=== PATIENT | male | born 1955 | race Caucasian/White ===

== ENCOUNTER 2021-11-02 16:55 | Inpatient (IN) ==
[2021-11-02 18:44] LABS: Basophils % 0.3 % (0.0-0.8); Eosinophils # 0.1 10*3/uL (0.0-0.87); Eosinophils % 1.3 % (0.00-10.9); Hematocrit 23.9 VOL% (42.0-52.0); Hemoglobin 7.4 GM/DL (14.0-18.0); Immature Granulocytes Absolute 0.09 #; Lymphocytes # 1.2 10*3/uL (1.4-4.0); Lymphocytes % 12.9 % (21.2-54.2); Mean Corpuscular Volume 95.2 FL (87-102); Mean Platelet Volume 10.6 FL (9.6-12.0); Monocytes # 0.6 10*3/uL (0.11-0.8); Monocytes % 6.8 % (1.7-12.7); Neutrophils % 77.7 % (38.7-73.9); Platelet Count 252 T/CUMM (130-400); Red Blood Count 2.51 MC/CUMM (3.8-5.5); Red Cell Distribution Width 15.3 % (9.3-17.3); White Blood Count 9.2 T/CUMM (4-12)
[2021-11-02 19:02] LABS: Bilirubin,Total 0.5 MG/DL (0.20-1.00); Calcium 8.3 MG/DL (8.5-10.1); Osmolality,Calculated 300.3 MOS/KG (273-304); Potassium 3.7 MMOL/L (3.5-5.1); Total Protein 7.1 G/DL (6.4-8.2)
[2021-11-02 19:03] LABS: INR 1.2; PT Patient Result 12.7 SECS (10.5-12.0); Partial Thromboplastin Time 27.3 SECS (23.7-32.9)
[2021-11-02 19:21] LABS: Arterial Base Excess iSTAT 10 MMOL/L (-2.5-2.5); Arterial O2 Saturation iSTAT 78 % (95-100); Arterial PCO2 iSTAT 51 MM HG (35-48); Arterial PO2 iSTAT 42 MM HG (80-95); Arterial Total CO2 iSTAT 37 MMO/L (23-27); Arterial pH iSTAT 7.446 (7.35-7.45)
[2021-11-02 19:51] LABS: Sedimentation Rate-Westergren 136 MM/HR (0-20)
[2021-11-02] MEDS ORDERED: GLUCAGON 1 MG VIAL IM PRN (20:08)
[2021-11-02] MEDS ORDERED: DEXTROSE 10% 250 ML BAG IV PRN (20:34)
[2021-11-02 20:55] LABS: Bilirubin,Urine Negative (Negative); Blood, Urine Large mg/dL (Negative); Glucose,Urine (UA) Negative (Negative); Ketones,Urine Negative (Negative); Nitrite,Urine Negative (Negative); Protein,Urine 100 mg/dL (Negative); Urine Appearance Slightly Cloudy (Clear); Urine Color Yellow (Yellow); Urine Specific Gravity >= 1.030 (1.001-1.035); Urine Urobilinogen 0.2 eU/dL (<2.0); Urine pH 5.5 (4.5-8.0)
[2021-11-02 20:58] LABS: Hyaline Casts,Urine 13 /LPF (0-3); Mucus,Urine Occasional /LPF (Occasional); RBC,Urine 113 /HPF (0-4)
[2021-11-02] MEDS: CEFEPIME 1,000 MG in SODIUM CHLORIDE 0.9% 100 ML IV SCH (22:04)
[2021-11-02] MEDS: FUROSEMIDE 40 MG/4 ML VIAL IV SCH (22:04)
[2021-11-02] MEDS: ENOXAPARIN 30 MG/0.3 ML SYRINGE SUBCUT SCH (22:05)
[2021-11-02] MEDS: INSULIN REGULAR 100 UNIT/ML SUBCUT SCH (23:09)
[2021-11-02] MEDS: VANCOMYCIN INJ 1,750 MG in SODIUM CHLORIDE 0.9% 500 ML IV SCH (23:12)
[2021-11-02] MEDS: ALBUTEROL/IPRATROPIUM 3 ML NEB RESP TX SCH (23:55)
[2021-11-03 04:51] LABS: Basophils % 0.5 % (0.0-0.8); Eosinophils # 0.1 10*3/uL (0.0-0.87); Eosinophils % 1.6 % (0.00-10.9); Hematocrit 25.1 VOL% (42.0-52.0); Hemoglobin 7.6 GM/DL (14.0-18.0); Immature Granulocytes % 1.4 %; Immature Granulocytes Absolute 0.12 #; Lymphocytes # 0.6 10*3/uL (1.4-4.0); Lymphocytes % 7.6 % (21.2-54.2); Mean Corpuscular HGB Conc 30.3 GM/DL (32-36); Mean Corpuscular Volume 95.1 FL (87-102); Mean Platelet Volume 10.6 FL (9.6-12.0); Monocytes # 0.6 10*3/uL (0.11-0.8); Monocytes % 7.5 % (1.7-12.7); Neutrophils % 81.4 % (38.7-73.9); Platelet Count 251 T/CUMM (130-400); Red Blood Count 2.64 MC/CUMM (3.8-5.5); Red Cell Distribution Width 15.4 % (9.3-17.3); White Blood Count 8.3 T/CUMM (4-12)
[2021-11-03 05:16] LABS: Calcium 8.7 MG/DL (8.5-10.1); Osmolality,Calculated 302.1 MOS/KG (273-304); Potassium 3.9 MMOL/L (3.5-5.1)
[2021-11-03] MEDS: CEFEPIME 1,000 MG in SODIUM CHLORIDE 0.9% 100 ML IV SCH ×3 (05:29→22:20)
[2021-11-03] MEDS: ALBUTEROL/IPRATROPIUM 3 ML NEB RESP TX SCH ×3 (07:15→19:55)
[2021-11-03] MEDS: INSULIN REGULAR 100 UNIT/ML SUBCUT SCH ×4 (07:50→22:20)
[2021-11-03] MEDS ORDERED: NITROGLYCERIN SL 0.4 MG TABLET SL PRN (08:26)
[2021-11-03] MEDS ORDERED: COLCHICINE 0.6 MG CAPSULE PO PRN (08:31)
[2021-11-03] MEDS: SPIRONOLACTONE 25 MG TABLET PO SCH (08:52)
[2021-11-03] MEDS: SACUBITRIL/VALSARTAN 49-51 MG TABLET PO SCH ×2 (08:53→22:20)
[2021-11-03] MEDS: SERTRALINE 50 MG TABLET PO SCH (08:53)
[2021-11-03] MEDS: FERROUS SULFATE 325 MG TABLET PO SCH ×2 (08:53→22:20)
[2021-11-03] MEDS: MAGNESIUM OXIDE 400 MG TABLET PO SCH ×2 (08:53→22:20)
[2021-11-03] MEDS: carvediloL 6.25 MG TABLET PO SCH ×2 (08:53→22:20)
[2021-11-03] MEDS: ISOSORBIDE MONONITRATE 30 MG TABLET PO SCH (08:53)
[2021-11-03] MEDS: GABAPENTIN 600 MG TABLET PO SCH ×2 (08:53→22:20)
[2021-11-03] MEDS: DOCUSATE SODIUM 100 MG CAPSULE PO SCH ×2 (08:53→22:20)
[2021-11-03] MEDS: allopurinoL 300 MG TABLET PO SCH (08:54)
[2021-11-03] MEDS ORDERED: CLOPIDOGREL 75 MG TABLET PO SCH (09:00)
[2021-11-03] MEDS ORDERED: CALCIUM (CARBONATE)/VITAMIN D 600 MG-400 UNIT TABLET PO SCH (09:00)
[2021-11-03] MEDS ORDERED: VANCOMYCIN INJ 1,000 MG in SODIUM CHLORIDE 0.9% 250 ML IV SCH (09:00)
[2021-11-03] MEDS ORDERED: PANTOPRAZOLE 40 MG TABLET PO SCH (09:00)
[2021-11-03] MEDS: FUROSEMIDE 40 MG/4 ML VIAL IV SCH ×2 (09:18→16:15)
[2021-11-03] MEDS: BACITRACIN OINT 28.35 GM TUBE TOP SCH (09:18)
[2021-11-03] MEDS ORDERED: REMDESIVIR 200 MG in SODIUM CHLORIDE 0.9% 210 ML IV ONE (16:00)
[2021-11-03] MEDS: DEXAMETHASONE 4 MG/1 ML VIAL IV SCH (16:12)
[2021-11-03] MEDS: CETIRIZINE 10 MG TABLET PO SCH (16:12)
[2021-11-03] MEDS: CHOLECALCIFEROL 1,000 UNIT TABLET PO SCH (16:12)
[2021-11-03] MEDS: ZINC GLUCONATE 50 MG TABLET PO SCH (16:15)
[2021-11-03] MEDS: ALBUTEROL INHALER 18 GM INH SCH (18:08)
[2021-11-03 18:15] LABS: Basophils # 0.1 10*3/uL (0.0-0.2); Basophils % 0.6 % (0.0-0.8); Eosinophils % 0.3 % (0.00-10.9); Hemoglobin 7.9 GM/DL (14.0-18.0); Immature Granulocytes % 1.4 %; Immature Granulocytes Absolute 0.12 #; Lymphocytes # 0.8 10*3/uL (1.4-4.0); Lymphocytes % 8.8 % (21.2-54.2); Mean Corpuscular HGB Conc 30.4 GM/DL (32-36); Mean Corpuscular Volume 94.9 FL (87-102); Mean Platelet Volume 10.3 FL (9.6-12.0); Monocytes # 0.6 10*3/uL (0.11-0.8); Monocytes % 6.9 % (1.7-12.7); NRBC # 0.02 10*3/uL; Platelet Count 289 T/CUMM (130-400); Red Blood Count 2.74 MC/CUMM (3.8-5.5); Red Cell Distribution Width 15.7 % (9.3-17.3); White Blood Count 8.7 T/CUMM (4-12)
[2021-11-03] MEDS: DESITIN 4OZ/NYSTATIN 15 GRAM MIXTURE PASTE TOP SCH (22:20)
[2021-11-03] MEDS: FAMOTIDINE 20 MG TABLET PO SCH (22:20)
[2021-11-03] MEDS: ATORVASTATIN 80 MG TABLET PO SCH (22:20)
[2021-11-03] MEDS: ASPIRIN EC 81 MG TABLET PO SCH (22:20)
[2021-11-03] MEDS: ENOXAPARIN 30 MG/0.3 ML SYRINGE SUBCUT SCH (22:20)
[2021-11-03] MEDS: INSULIN GLARGINE 100 UNIT/ML SUBCUT SCH (23:28)
[2021-11-03] MEDS: VANCOMYCIN INJ 1,750 MG in SODIUM CHLORIDE 0.9% 500 ML IV SCH (23:29)
[2021-11-04] MEDS ORDERED: hydrALAZINE 20 MG/1 ML VIAL IV ONE (01:58)
[2021-11-04 02:51] LABS: Arterial Base Excess iSTAT 8 MMOL/L (-2.5-2.5); Arterial Bicarbonate iSTAT 34.4 MMOL/L (20-26); Arterial O2 Saturation iSTAT 88 % (95-100); Arterial PCO2 iSTAT 62 MM HG (35-48); Arterial PO2 iSTAT 59 MM HG (80-95); Arterial Total CO2 iSTAT 36 MMO/L (23-27); Arterial pH iSTAT 7.353 (7.35-7.45)
[2021-11-04] MEDS: CEFEPIME 1,000 MG in SODIUM CHLORIDE 0.9% 100 ML IV SCH ×3 (04:33→21:57)
[2021-11-04 05:33] LABS: Basophils % 0.3 % (0.0-0.8); Hematocrit 24.1 VOL% (42.0-52.0); Hemoglobin 7.3 GM/DL (14.0-18.0); Immature Granulocytes % 1.6 %; Immature Granulocytes Absolute 0.11 #; Lymphocytes # 0.9 10*3/uL (1.4-4.0); Lymphocytes % 12.6 % (21.2-54.2); Mean Corpuscular HGB Conc 30.3 GM/DL (32-36); Mean Corpuscular Volume 95.6 FL (87-102); Mean Platelet Volume 10.5 FL (9.6-12.0); Monocytes # 0.8 10*3/uL (0.11-0.8); Monocytes % 11.7 % (1.7-12.7); NRBC # 0.03 10*3/uL; Neutrophils % 73.8 % (38.7-73.9); Platelet Count 266 T/CUMM (130-400); Red Blood Count 2.52 MC/CUMM (3.8-5.5); Red Cell Distribution Width 15.7 % (9.3-17.3)
[2021-11-04 05:58] LABS: Albumin 1.9 G/DL (3.4-5.0); Bilirubin,Total 0.5 MG/DL (0.20-1.00); Calcium 8.1 MG/DL (8.5-10.1); Calcium 8.2 MG/DL (8.5-10.1); Ferritin 847.8 ng/mL (26-388); Osmolality,Calculated 303.1 MOS/KG (273-304); Osmolality,Calculated 308.8 MOS/KG (273-304); Potassium 3.8 MMOL/L (3.5-5.1); Potassium 3.9 MMOL/L (3.5-5.1); Risk Ratio 1.62; Total Protein 7.1 G/DL (6.4-8.2); VLDL Cholesterol 10.4 MG/DL
[2021-11-04 06:14] LABS: Arterial Base Excess iSTAT 9 MMOL/L (-2.5-2.5); Arterial O2 Saturation iSTAT 98 % (95-100); Arterial PCO2 iSTAT 58 MM HG (35-48); Arterial PO2 iSTAT 104 MM HG (80-95); Arterial Total CO2 iSTAT 37 MMO/L (23-27); Arterial pH iSTAT 7.388 (7.35-7.45)
[2021-11-04] MEDS: FUROSEMIDE 40 MG/4 ML VIAL IV SCH ×2 (08:15→15:46)
[2021-11-04] MEDS: BACITRACIN OINT 28.35 GM TUBE TOP SCH (08:20)
[2021-11-04] MEDS: DOCUSATE SODIUM 100 MG CAPSULE PO SCH ×2 (08:20→21:56)
[2021-11-04] MEDS: DESITIN 4OZ/NYSTATIN 15 GRAM MIXTURE PASTE TOP SCH ×2 (08:21→21:58)
[2021-11-04] MEDS: GABAPENTIN 600 MG TABLET PO SCH ×2 (08:21→21:56)
[2021-11-04] MEDS: REMDESIVIR 100 MG in SODIUM CHLORIDE 0.9% 100 ML IV SCH (09:34)
[2021-11-04] MEDS: INSULIN REGULAR 100 UNIT/ML SUBCUT SCH ×4 (09:34→21:57)
[2021-11-04] MEDS: DEXAMETHASONE 4 MG/1 ML VIAL IV SCH (09:35)
[2021-11-04] MEDS: ALBUTEROL INHALER 18 GM INH SCH ×4 (09:45→18:16)
[2021-11-04] MEDS: carvediloL 6.25 MG TABLET PO SCH ×2 (09:50→21:56)
[2021-11-04] MEDS: SACUBITRIL/VALSARTAN 49-51 MG TABLET PO SCH ×2 (09:50→21:55)
[2021-11-04] MEDS: SPIRONOLACTONE 25 MG TABLET PO SCH (09:50)
[2021-11-04] MEDS: FERROUS SULFATE 325 MG TABLET PO SCH ×2 (09:50→21:56)
[2021-11-04] MEDS: FAMOTIDINE 20 MG TABLET PO SCH ×2 (09:51→21:56)
[2021-11-04] MEDS: allopurinoL 300 MG TABLET PO SCH (09:51)
[2021-11-04] MEDS: ZINC GLUCONATE 50 MG TABLET PO SCH (09:51)
[2021-11-04] MEDS: MAGNESIUM OXIDE 400 MG TABLET PO SCH ×2 (09:51→21:56)
[2021-11-04] MEDS: CETIRIZINE 10 MG TABLET PO SCH (09:51)
[2021-11-04] MEDS: ISOSORBIDE MONONITRATE 30 MG TABLET PO SCH (09:51)
[2021-11-04] MEDS: CHOLECALCIFEROL 1,000 UNIT TABLET PO SCH (09:51)
[2021-11-04] MEDS: SERTRALINE 50 MG TABLET PO SCH (09:51)
[2021-11-04] MEDS: ALBUTEROL/IPRATROPIUM 3 ML NEB RESP TX SCH (17:28)
[2021-11-04] MEDS: ENOXAPARIN 30 MG/0.3 ML SYRINGE SUBCUT SCH (21:55)
[2021-11-04] MEDS: ATORVASTATIN 80 MG TABLET PO SCH (21:56)
[2021-11-04] MEDS: ASPIRIN EC 81 MG TABLET PO SCH (21:56)
[2021-11-04] MEDS: INSULIN GLARGINE 100 UNIT/ML SUBCUT SCH (21:57)
[2021-11-04] MEDS: VANCOMYCIN INJ 1,750 MG in SODIUM CHLORIDE 0.9% 500 ML IV SCH (22:45)
[2021-11-05] MEDS: CEFEPIME 1,000 MG in SODIUM CHLORIDE 0.9% 100 ML IV SCH ×3 (04:41→22:30)
[2021-11-05 05:44] LABS: Basophils % 0.2 % (0.0-0.8); Hematocrit 26.4 VOL% (42.0-52.0); Immature Granulocytes % 1.4 %; Immature Granulocytes Absolute 0.09 #; Lymphocytes # 1.2 10*3/uL (1.4-4.0); Lymphocytes % 18.8 % (21.2-54.2); Mean Corpuscular HGB Conc 30.3 GM/DL (32-36); Mean Corpuscular Volume 96.7 FL (87-102); Mean Platelet Volume 11.2 FL (9.6-12.0); Monocytes # 0.5 10*3/uL (0.11-0.8); Monocytes % 8.2 % (1.7-12.7); Neutrophils % 71.4 % (38.7-73.9); Platelet Count 87 T/CUMM (130-400); Red Blood Count 2.73 MC/CUMM (3.8-5.5); Red Cell Distribution Width 15.8 % (9.3-17.3); White Blood Count 6.3 T/CUMM (4-12)
[2021-11-05 06:03] LABS: Albumin 1.4 G/DL (3.4-5.0); Bilirubin,Total 0.5 MG/DL (0.20-1.00); Calcium 7.7 MG/DL (8.5-10.1); Ferritin 868.1 ng/mL (26-388); Osmolality,Calculated 306.7 MOS/KG (273-304); Potassium 3.5 MMOL/L (3.5-5.1); Total Protein 6.1 G/DL (6.4-8.2)
[2021-11-05] MEDS: SERTRALINE 50 MG TABLET PO SCH (09:00)
[2021-11-05] MEDS: FAMOTIDINE 20 MG TABLET PO SCH ×2 (09:00→21:50)
[2021-11-05] MEDS: MAGNESIUM OXIDE 400 MG TABLET PO SCH ×2 (09:00→21:50)
[2021-11-05] MEDS: CHOLECALCIFEROL 1,000 UNIT TABLET PO SCH (09:01)
[2021-11-05] MEDS: CETIRIZINE 10 MG TABLET PO SCH (09:01)
[2021-11-05] MEDS: GABAPENTIN 600 MG TABLET PO SCH ×2 (09:01→21:50)
[2021-11-05] MEDS: DOCUSATE SODIUM 100 MG CAPSULE PO SCH ×2 (09:01→21:50)
[2021-11-05] MEDS: FERROUS SULFATE 325 MG TABLET PO SCH ×2 (09:01→21:50)
[2021-11-05] MEDS: allopurinoL 300 MG TABLET PO SCH (09:01)
[2021-11-05] MEDS: SPIRONOLACTONE 25 MG TABLET PO SCH (09:01)
[2021-11-05] MEDS: ISOSORBIDE MONONITRATE 30 MG TABLET PO SCH (09:01)
[2021-11-05] MEDS: ZINC GLUCONATE 50 MG TABLET PO SCH (09:02)
[2021-11-05] MEDS: carvediloL 6.25 MG TABLET PO SCH ×2 (09:02→21:50)
[2021-11-05] MEDS: DEXAMETHASONE 4 MG/1 ML VIAL IV SCH (09:02)
[2021-11-05] MEDS: FUROSEMIDE 40 MG/4 ML VIAL IV SCH ×2 (09:03→18:42)
[2021-11-05] MEDS: INSULIN REGULAR 100 UNIT/ML SUBCUT SCH ×4 (09:04→22:25)
[2021-11-05] MEDS: DESITIN 4OZ/NYSTATIN 15 GRAM MIXTURE PASTE TOP SCH ×2 (09:05→21:50)
[2021-11-05] MEDS: ALBUTEROL INHALER 18 GM INH SCH ×4 (09:05→20:00)
[2021-11-05] MEDS: BACITRACIN OINT 28.35 GM TUBE TOP SCH (09:05)
[2021-11-05] MEDS: SACUBITRIL/VALSARTAN 49-51 MG TABLET PO SCH ×2 (09:10→21:50)
[2021-11-05] MEDS: REMDESIVIR 100 MG in SODIUM CHLORIDE 0.9% 100 ML IV SCH (11:59)
[2021-11-05] MEDS: ATORVASTATIN 80 MG TABLET PO SCH (21:50)
[2021-11-05] MEDS: ASPIRIN EC 81 MG TABLET PO SCH (21:50)
[2021-11-05] MEDS: ENOXAPARIN 30 MG/0.3 ML SYRINGE SUBCUT SCH (21:50)
[2021-11-05] MEDS: INSULIN GLARGINE 100 UNIT/ML SUBCUT SCH (22:25)
[2021-11-06] MEDS: DESITIN 4OZ/NYSTATIN 15 GRAM MIXTURE PASTE TOP SCH ×2 (00:37→10:47)
[2021-11-06] MEDS: CEFEPIME 1,000 MG in SODIUM CHLORIDE 0.9% 100 ML IV SCH ×3 (05:30→23:36)
[2021-11-06 05:51] LABS: Basophils % 0.1 % (0.0-0.8); Eosinophils % 0.4 % (0.00-10.9); Hematocrit 27.7 VOL% (42.0-52.0); Hemoglobin 8.2 GM/DL (14.0-18.0); Immature Granulocytes % 0.9 %; Immature Granulocytes Absolute 0.07 #; Lymphocytes # 1.6 10*3/uL (1.4-4.0); Lymphocytes % 19.7 % (21.2-54.2); Mean Corpuscular HGB Conc 29.6 GM/DL (32-36); Mean Corpuscular Volume 96.9 FL (87-102); Mean Platelet Volume 10.3 FL (9.6-12.0); Monocytes # 0.5 10*3/uL (0.11-0.8); Monocytes % 6.6 % (1.7-12.7); NRBC # 0.02 10*3/uL; Neutrophils % 72.3 % (38.7-73.9); Red Blood Count 2.86 MC/CUMM (3.8-5.5); Red Cell Distribution Width 15.9 % (9.3-17.3); White Blood Count 7.9 T/CUMM (4-12)
[2021-11-06 06:03] LABS: Platelet Count 280 T/CUMM (130-400)
[2021-11-06 06:11] LABS: Albumin 1.7 G/DL (3.4-5.0); Bilirubin,Total 0.5 MG/DL (0.20-1.00); Calcium 8.1 MG/DL (8.5-10.1); Ferritin 877.2 ng/mL (26-388); Osmolality,Calculated 313.3 MOS/KG (273-304); Potassium 3.5 MMOL/L (3.5-5.1); Total Protein 6.5 G/DL (6.4-8.2)
[2021-11-06] MEDS: SERTRALINE 50 MG TABLET PO SCH (09:22)
[2021-11-06] MEDS: carvediloL 6.25 MG TABLET PO SCH ×2 (09:23→23:33)
[2021-11-06] MEDS: SPIRONOLACTONE 25 MG TABLET PO SCH (09:23)
[2021-11-06] MEDS: DOCUSATE SODIUM 100 MG CAPSULE PO SCH (09:23)
[2021-11-06] MEDS: allopurinoL 300 MG TABLET PO SCH (09:23)
[2021-11-06] MEDS: ZINC GLUCONATE 50 MG TABLET PO SCH (09:23)
[2021-11-06] MEDS: SACUBITRIL/VALSARTAN 49-51 MG TABLET PO SCH ×2 (09:23→23:34)
[2021-11-06] MEDS: MAGNESIUM OXIDE 400 MG TABLET PO SCH (09:24)
[2021-11-06] MEDS: CHOLECALCIFEROL 1,000 UNIT TABLET PO SCH (09:24)
[2021-11-06] MEDS: FERROUS SULFATE 325 MG TABLET PO SCH (09:24)
[2021-11-06] MEDS: GABAPENTIN 600 MG TABLET PO SCH ×2 (09:25→23:34)
[2021-11-06] MEDS: FAMOTIDINE 20 MG TABLET PO SCH ×2 (09:25→23:33)
[2021-11-06] MEDS: REMDESIVIR 100 MG in SODIUM CHLORIDE 0.9% 100 ML IV SCH (09:26)
[2021-11-06] MEDS: DEXAMETHASONE 4 MG/1 ML VIAL IV SCH (09:26)
[2021-11-06] MEDS: ISOSORBIDE MONONITRATE 30 MG TABLET PO SCH (09:26)
[2021-11-06] MEDS: CETIRIZINE 10 MG TABLET PO SCH (09:26)
[2021-11-06] MEDS: INSULIN REGULAR 100 UNIT/ML SUBCUT SCH ×4 (09:27→23:37)
[2021-11-06] MEDS: ALBUTEROL INHALER 18 GM INH SCH ×3 (09:31→16:24)
[2021-11-06] MEDS: BACITRACIN OINT 28.35 GM TUBE TOP SCH (09:32)
[2021-11-06] MEDS: FUROSEMIDE 40 MG/4 ML VIAL IV SCH (10:51)
[2021-11-06] MEDS: VANCOMYCIN INJ 1,750 MG in SODIUM CHLORIDE 0.9% 500 ML IV SCH (12:34)
[2021-11-06 14:05] LABS: Arterial Base Excess iSTAT 10 MMOL/L (-2.5-2.5); Arterial Bicarbonate iSTAT 35.7 MMOL/L (20-26); Arterial O2 Saturation iSTAT 93 % (95-100); Arterial PCO2 iSTAT 55 MM HG (35-48); Arterial PO2 iSTAT 68 MM HG (80-95); Arterial Total CO2 iSTAT 37 MMO/L (23-27); Arterial pH iSTAT 7.421 (7.35-7.45)
[2021-11-06] MEDS: ENOXAPARIN 30 MG/0.3 ML SYRINGE SUBCUT SCH (23:37)
[2021-11-06] MEDS: INSULIN GLARGINE 100 UNIT/ML SUBCUT SCH (23:39)
[2021-11-07] MEDS: VANCOMYCIN INJ 1,750 MG in SODIUM CHLORIDE 0.9% 500 ML IV SCH
[2021-11-07] MEDS: DOCUSATE SODIUM 100 MG CAPSULE PO SCH ×3 (00:07→23:33)
[2021-11-07] MEDS: ASPIRIN EC 81 MG TABLET PO SCH ×2 (00:08→23:33)
[2021-11-07] MEDS: ATORVASTATIN 80 MG TABLET PO SCH ×2 (00:08→23:33)
[2021-11-07] MEDS: FERROUS SULFATE 325 MG TABLET PO SCH ×3 (00:08→23:33)
[2021-11-07] MEDS: MAGNESIUM OXIDE 400 MG TABLET PO SCH ×3 (00:08→23:33)
[2021-11-07 03:13] LABS: ABG Base Excess 9.6 MMOL/L (-2.5-2.5); ABG HCO3 33.3 MMOL/L (20-26); ABG Oxygen Saturation 95.7 % (95-100); ABG PCO2 52.6 MM HG (35-48); ABG PH 7.434 (7.35-7.45); ABG PO2 82.1 MM HG (80-95); ABG TCO2 32.9 MMOL/L (23-27)
[2021-11-07] MEDS: CEFEPIME 1,000 MG in SODIUM CHLORIDE 0.9% 100 ML IV SCH ×3 (06:27→21:00)
[2021-11-07 07:11] LABS: Basophils % 0.2 % (0.0-0.8); Eosinophils # 0.2 10*3/uL (0.0-0.87); Eosinophils % 1.9 % (0.00-10.9); Hematocrit 27.6 VOL% (42.0-52.0); Hemoglobin 8.3 GM/DL (14.0-18.0); Immature Granulocytes % 1.1 %; Immature Granulocytes Absolute 0.12 #; Lymphocytes # 1.6 10*3/uL (1.4-4.0); Lymphocytes % 15.3 % (21.2-54.2); Mean Corpuscular HGB Conc 30.1 GM/DL (32-36); Mean Corpuscular Volume 95.8 FL (87-102); Mean Platelet Volume 10.1 FL (9.6-12.0); Monocytes # 0.6 10*3/uL (0.11-0.8); Monocytes % 5.6 % (1.7-12.7); Neutrophils % 75.9 % (38.7-73.9); Platelet Count 309 T/CUMM (130-400); Red Blood Count 2.88 MC/CUMM (3.8-5.5); White Blood Count 10.5 T/CUMM (4-12)
[2021-11-07 07:32] LABS: Albumin 1.8 G/DL (3.4-5.0); Bilirubin,Total 0.5 MG/DL (0.20-1.00); Calcium 8.5 MG/DL (8.5-10.1); Ferritin 678.1 ng/mL (26-388); Osmolality,Calculated 310.1 MOS/KG (273-304); Potassium 3.5 MMOL/L (3.5-5.1); Total Protein 6.8 G/DL (6.4-8.2)
[2021-11-07] MEDS: SACUBITRIL/VALSARTAN 49-51 MG TABLET PO SCH ×2 (10:51→23:33)
[2021-11-07] MEDS: SERTRALINE 50 MG TABLET PO SCH (10:51)
[2021-11-07] MEDS: ZINC GLUCONATE 50 MG TABLET PO SCH (10:52)
[2021-11-07] MEDS: FAMOTIDINE 20 MG TABLET PO SCH ×2 (10:52→23:33)
[2021-11-07] MEDS: CHOLECALCIFEROL 1,000 UNIT TABLET PO SCH (10:52)
[2021-11-07] MEDS: CETIRIZINE 10 MG TABLET PO SCH (10:53)
[2021-11-07] MEDS: GABAPENTIN 600 MG TABLET PO SCH ×2 (10:53→23:33)
[2021-11-07] MEDS: allopurinoL 300 MG TABLET PO SCH (10:53)
[2021-11-07] MEDS: ISOSORBIDE MONONITRATE 30 MG TABLET PO SCH (10:53)
[2021-11-07] MEDS: carvediloL 6.25 MG TABLET PO SCH ×2 (10:54→23:33)
[2021-11-07] MEDS: SPIRONOLACTONE 25 MG TABLET PO SCH (10:54)
[2021-11-07] MEDS: REMDESIVIR 100 MG in SODIUM CHLORIDE 0.9% 100 ML IV SCH (10:54)
[2021-11-07] MEDS: INSULIN REGULAR 100 UNIT/ML SUBCUT SCH ×4 (10:55→22:53)
[2021-11-07] MEDS: ALBUTEROL INHALER 18 GM INH SCH ×5 (10:55→18:06)
[2021-11-07] MEDS: DESITIN 4OZ/NYSTATIN 15 GRAM MIXTURE PASTE TOP SCH ×2 (10:56→23:33)
[2021-11-07] MEDS: BACITRACIN OINT 28.35 GM TUBE TOP SCH (10:56)
[2021-11-07] MEDS: DEXAMETHASONE 4 MG/1 ML VIAL IV SCH (10:56)
[2021-11-07] MEDS: SODIUM CHLORIDE 0.45% 1,000 ML IV SCH (15:21)
[2021-11-07] MEDS: INSULIN GLARGINE 100 UNIT/ML SUBCUT SCH (22:53)
[2021-11-07] MEDS: ENOXAPARIN 30 MG/0.3 ML SYRINGE SUBCUT SCH (23:33)
[2021-11-08 05:19] LABS: Basophils % 0.1 % (0.0-0.8); Eosinophils # 0.4 10*3/uL (0.0-0.87); Hematocrit 29.1 VOL% (42.0-52.0); Hemoglobin 8.4 GM/DL (14.0-18.0); Immature Granulocytes % 1.2 %; Immature Granulocytes Absolute 0.16 #; Lymphocytes # 1.4 10*3/uL (1.4-4.0); Lymphocytes % 10.2 % (21.2-54.2); Mean Corpuscular HGB Conc 28.9 GM/DL (32-36); Mean Corpuscular Volume 98.3 FL (87-102); Mean Platelet Volume 10.1 FL (9.6-12.0); Monocytes # 0.6 10*3/uL (0.11-0.8); Monocytes % 4.4 % (1.7-12.7); Neutrophils % 81.1 % (38.7-73.9); Platelet Count 306 T/CUMM (130-400); Red Blood Count 2.96 MC/CUMM (3.8-5.5); Red Cell Distribution Width 16.2 % (9.3-17.3); White Blood Count 13.8 T/CUMM (4-12)
[2021-11-08 05:43] LABS: Albumin 1.8 G/DL (3.4-5.0); Bilirubin,Total 0.8 MG/DL (0.20-1.00); Calcium 8.6 MG/DL (8.5-10.1); Osmolality,Calculated 308.1 MOS/KG (273-304); Potassium 3.6 MMOL/L (3.5-5.1); Total Protein 7.1 G/DL (6.4-8.2)
[2021-11-08] MEDS: CEFEPIME 1,000 MG in SODIUM CHLORIDE 0.9% 100 ML IV SCH ×3 (05:50→20:55)
[2021-11-08] MEDS: SODIUM CHLORIDE 0.45% 1,000 ML IV SCH (07:43)
[2021-11-08] MEDS: ALBUTEROL INHALER 18 GM INH SCH ×4 (08:00→18:06)
[2021-11-08] MEDS ORDERED: FUROSEMIDE 40 MG/4 ML VIAL IV ONE (08:15)
[2021-11-08] MEDS: INSULIN REGULAR 100 UNIT/ML SUBCUT SCH ×4 (08:31→20:35)
[2021-11-08 08:59] LABS: Arterial Base Excess iSTAT 8 MMOL/L (-2.5-2.5); Arterial Bicarbonate iSTAT 32.9 MMOL/L (20-26); Arterial O2 Saturation iSTAT 91 % (95-100); Arterial PCO2 iSTAT 48 MM HG (35-48); Arterial PO2 iSTAT 58 MM HG (80-95); Arterial Total CO2 iSTAT 34 MMO/L (23-27); Arterial pH iSTAT 7.444 (7.35-7.45)
[2021-11-08] MEDS: DESITIN 4OZ/NYSTATIN 15 GRAM MIXTURE PASTE TOP SCH ×2 (09:05→20:55)
[2021-11-08] MEDS: DEXAMETHASONE 4 MG/1 ML VIAL IV SCH (09:09)
[2021-11-08] MEDS: carvediloL 6.25 MG TABLET PO SCH ×2 (09:10→20:54)
[2021-11-08] MEDS: SACUBITRIL/VALSARTAN 49-51 MG TABLET PO SCH ×2 (09:10→20:54)
[2021-11-08] MEDS: BACITRACIN OINT 28.35 GM TUBE TOP SCH (09:10)
[2021-11-08] MEDS: ISOSORBIDE MONONITRATE 30 MG TABLET PO SCH (09:10)
[2021-11-08] MEDS ORDERED: AZITHROMYCIN INJ 500 MG in SODIUM CHLORIDE 0.9% 250 ML IV ONE (16:23)
[2021-11-08] MEDS ORDERED: MELATONIN 3 MG TABLET PO PRN (16:23)
[2021-11-08] MEDS ORDERED: DEXTROSE 10% 250 ML BAG IV PRN (16:26)
[2021-11-08] MEDS: INSULIN GLARGINE 100 UNIT/ML SUBCUT SCH (20:35)
[2021-11-08] MEDS: ASPIRIN EC 81 MG TABLET PO SCH (20:54)
[2021-11-08] MEDS: GABAPENTIN 600 MG TABLET PO SCH (20:55)
[2021-11-08] MEDS: ENOXAPARIN 30 MG/0.3 ML SYRINGE SUBCUT SCH (20:55)
[2021-11-08] MEDS: ATORVASTATIN 80 MG TABLET PO SCH (21:17)
[2021-11-08] MEDS: MAGNESIUM OXIDE 400 MG TABLET PO SCH (21:18)
[2021-11-08] MEDS: FAMOTIDINE 20 MG TABLET PO SCH (21:18)
[2021-11-09] MEDS: CEFEPIME 1,000 MG in SODIUM CHLORIDE 0.9% 100 ML IV SCH ×4 (02:15→21:05)
[2021-11-09 03:59] LABS: Basophils % 0.2 % (0.0-0.8); Eosinophils % 0.4 % (0.00-10.9); Hematocrit 26.5 VOL% (42.0-52.0); Hemoglobin 7.7 GM/DL (14.0-18.0); Immature Granulocytes % 1.1 %; Immature Granulocytes Absolute 0.12 #; Lymphocytes # 0.9 10*3/uL (1.4-4.0); Lymphocytes % 7.9 % (21.2-54.2); Mean Corpuscular HGB Conc 29.1 GM/DL (32-36); Mean Corpuscular Volume 99.3 FL (87-102); Monocytes # 0.5 10*3/uL (0.11-0.8); Neutrophils % 86.4 % (38.7-73.9); Platelet Count 265 T/CUMM (130-400); Red Blood Count 2.67 MC/CUMM (3.8-5.5); Red Cell Distribution Width 16.3 % (9.3-17.3); White Blood Count 11.3 T/CUMM (4-12)
[2021-11-09 04:16] LABS: Albumin 1.7 G/DL (3.4-5.0); Bilirubin,Total 0.9 MG/DL (0.20-1.00); Calcium 7.9 MG/DL (8.5-10.1); Osmolality,Calculated 320.6 MOS/KG (273-304); Potassium 3.9 MMOL/L (3.5-5.1); Total Protein 6.7 G/DL (6.4-8.2)
[2021-11-09 04:30] LABS: Arterial Base Excess iSTAT 8 MMOL/L (-2.5-2.5); Arterial Bicarbonate iSTAT 32.8 MMOL/L (20-26); Arterial O2 Saturation iSTAT 92 % (95-100); Arterial PCO2 iSTAT 49 MM HG (35-48); Arterial PO2 iSTAT 63 MM HG (80-95); Arterial Total CO2 iSTAT 34 MMO/L (23-27); Arterial pH iSTAT 7.438 (7.35-7.45)
[2021-11-09 04:36] LABS: Ferritin 645.3 ng/mL (26-388)
[2021-11-09] MEDS: ALBUTEROL INHALER 18 GM INH SCH ×4 (07:30→18:01)
[2021-11-09] MEDS ORDERED: FUROSEMIDE 40 MG/4 ML VIAL IV ONE (08:32)
[2021-11-09] MEDS: CHOLECALCIFEROL 1,000 UNIT TABLET PO SCH (08:48)
[2021-11-09] MEDS: FERROUS SULFATE 325 MG TABLET PO SCH ×2 (08:52→21:06)
[2021-11-09] MEDS: GABAPENTIN 300 MG CAPSULE PO SCH (09:01)
[2021-11-09] MEDS: SACUBITRIL/VALSARTAN 49-51 MG TABLET PO SCH ×2 (09:01→21:06)
[2021-11-09] MEDS: ISOSORBIDE MONONITRATE 30 MG TABLET PO SCH (09:01)
[2021-11-09] MEDS: carvediloL 6.25 MG TABLET PO SCH ×2 (09:02→21:07)
[2021-11-09] MEDS: AZITHROMYCIN 250 MG TABLET PO SCH (09:02)
[2021-11-09] MEDS: BACITRACIN OINT 28.35 GM TUBE TOP SCH (09:04)
[2021-11-09] MEDS: SPIRONOLACTONE 25 MG TABLET PO SCH (09:06)
[2021-11-09] MEDS: DAPAGLIFLOZIN 10 MG TABLET PO SCH (09:06)
[2021-11-09] MEDS: DEXAMETHASONE 4 MG/1 ML VIAL IV SCH (09:07)
[2021-11-09] MEDS: SERTRALINE 50 MG TABLET PO SCH (09:09)
[2021-11-09] MEDS: DESITIN 4OZ/NYSTATIN 15 GRAM MIXTURE PASTE TOP SCH ×2 (09:09→21:07)
[2021-11-09] MEDS ORDERED: ENOXAPARIN 30 MG/0.3 ML SYRINGE SUBCUT SCH (11:00)
[2021-11-09] MEDS: ENOXAPARIN 60 MG/0.6 ML SYRINGE SUBCUT SCH ×2 (11:58→23:15)
[2021-11-09] MEDS: VANCOMYCIN INJ 1,750 MG in SODIUM CHLORIDE 0.9% 500 ML IV SCH (11:58)
[2021-11-09] MEDS: INSULIN REGULAR 100 UNIT/ML SUBCUT SCH ×3 (12:46→23:14)
[2021-11-09] MEDS: methylPREDNISolone SOD SUC 125 MG/2 ML VIAL IV SCH ×2 (14:21→22:47)
[2021-11-09] MEDS: FAMOTIDINE 20 MG/2 ML VIAL IV SCH (21:06)
[2021-11-09] MEDS: ATORVASTATIN 80 MG TABLET PO SCH (21:06)
[2021-11-09] MEDS: ASPIRIN EC 81 MG TABLET PO SCH (21:07)
[2021-11-09] MEDS: GABAPENTIN 600 MG TABLET PO SCH (21:07)
[2021-11-10] MEDS: CEFEPIME 1,000 MG in SODIUM CHLORIDE 0.9% 100 ML IV SCH ×4 (02:17→20:45)
[2021-11-10 03:21] LABS: Albumin 1.7 G/DL (3.4-5.0); Bilirubin,Total 0.8 MG/DL (0.20-1.00); Calcium 8.3 MG/DL (8.5-10.1); Potassium 3.6 MMOL/L (3.5-5.1); Total Protein 7.1 G/DL (6.4-8.2)
[2021-11-10 03:37] LABS: Basophils % 0.1 % (0.0-0.8); Eosinophils % 0.1 % (0.00-10.9); Hematocrit 28.8 VOL% (42.0-52.0); Immature Granulocytes % 0.9 %; Lymphocytes # 0.6 10*3/uL (1.4-4.0); Lymphocytes % 5.2 % (21.2-54.2); Mean Corpuscular HGB Conc 28.8 GM/DL (32-36); Mean Corpuscular Volume 98.3 FL (87-102); Mean Platelet Volume 10.2 FL (9.6-12.0); Monocytes # 0.4 10*3/uL (0.11-0.8); Monocytes % 3.1 % (1.7-12.7); Neutrophils % 90.6 % (38.7-73.9); Platelet Count 318 T/CUMM (130-400); Red Blood Count 2.93 MC/CUMM (3.8-5.5); Red Cell Distribution Width 16.3 % (9.3-17.3); White Blood Count 11.2 T/CUMM (4-12)
[2021-11-10 03:38] LABS: Hemoglobin 8.3 GM/DL (14.0-18.0)
[2021-11-10 03:42] LABS: Hypochromia Slight; Lymphocytes 3 % (20-55); Platelet Estimate Adequate; Total Cells Counted 100
[2021-11-10 04:39] LABS: Arterial Base Excess iSTAT 7 MMOL/L (-2.5-2.5); Arterial Bicarbonate iSTAT 32.2 MMOL/L (20-26); Arterial O2 Saturation iSTAT 89 % (95-100); Arterial PCO2 iSTAT 49 MM HG (35-48); Arterial PO2 iSTAT 56 MM HG (80-95); Arterial Total CO2 iSTAT 34 MMO/L (23-27)
[2021-11-10] MEDS: INSULIN REGULAR 100 UNIT/ML SUBCUT SCH ×3 (06:05→18:20)
[2021-11-10] MEDS: methylPREDNISolone SOD SUC 125 MG/2 ML VIAL IV SCH ×2 (06:06→14:08)
[2021-11-10] MEDS: ALBUTEROL INHALER 18 GM INH SCH (07:00)
[2021-11-10] MEDS: FAMOTIDINE 20 MG/2 ML VIAL IV SCH ×2 (08:07→20:46)
[2021-11-10] MEDS: DAPAGLIFLOZIN 10 MG TABLET PO SCH (08:07)
[2021-11-10] MEDS: FERROUS SULFATE 325 MG TABLET PO SCH ×2 (08:08→20:45)
[2021-11-10] MEDS: carvediloL 6.25 MG TABLET PO SCH ×2 (08:08→20:45)
[2021-11-10] MEDS: SERTRALINE 50 MG TABLET PO SCH (08:08)
[2021-11-10] MEDS: CLOPIDOGREL 75 MG TABLET PO SCH (08:08)
[2021-11-10] MEDS: ISOSORBIDE MONONITRATE 30 MG TABLET PO SCH (08:08)
[2021-11-10] MEDS: GABAPENTIN 300 MG CAPSULE PO SCH (08:08)
[2021-11-10] MEDS: SACUBITRIL/VALSARTAN 49-51 MG TABLET PO SCH (08:08)
[2021-11-10] MEDS: DESITIN 4OZ/NYSTATIN 15 GRAM MIXTURE PASTE TOP SCH ×2 (08:09→23:37)
[2021-11-10] MEDS: AZITHROMYCIN 250 MG TABLET PO SCH (08:09)
[2021-11-10] MEDS: BACITRACIN OINT 28.35 GM TUBE TOP SCH (08:09)
[2021-11-10] MEDS: ALBUTEROL/IPRATROPIUM 3 ML NEB RESP TX SCH ×5 (08:35→22:11)
[2021-11-10] MEDS: MORPHINE 2 MG/1 ML SYRINGE IV PRN (09:47)
[2021-11-10] MEDS ORDERED: LORazepam 2 MG/1 ML VIAL IV ONE (11:09)
[2021-11-10] MEDS ORDERED: DIAZEPAM 10 MG/2 ML SYRINGE IV ONE (11:14)
[2021-11-10] MEDS ORDERED: DIAZEPAM 10 MG/2 ML SYRINGE ONE (11:16)
[2021-11-10] MEDS: ENOXAPARIN 60 MG/0.6 ML SYRINGE SUBCUT SCH (11:18)
[2021-11-10] MEDS: INSULIN GLARGINE 100 UNIT/ML SUBCUT SCH (11:18)
[2021-11-10] MEDS ORDERED: SUCCINYLCHOLINE 200 MG/10 ML VIAL ONE (14:16)
[2021-11-10] MEDS ORDERED: ETOMIDATE 20 MG/10 ML VIAL IV ONE ×2 (14:16→14:23)
[2021-11-10] MEDS ORDERED: SUCCINYLCHOLINE 200 MG/10 ML VIAL IV ONE (14:24)
[2021-11-10] MEDS: ZINC GLUCONATE 50 MG TABLET PO SCH (15:06)
[2021-11-10 16:01] LABS: Arterial Base Excess iSTAT 8 MMOL/L (-2.5-2.5); Arterial Bicarbonate iSTAT 33.4 MMOL/L (20-26); Arterial O2 Saturation iSTAT 98 % (95-100); Arterial PCO2 iSTAT 53 MM HG (35-48); Arterial PO2 iSTAT 114 MM HG (80-95); Arterial Total CO2 iSTAT 35 MMO/L (23-27); Arterial pH iSTAT 7.405 (7.35-7.45)
[2021-11-10] MEDS: fentaNYL INJ 1,250 MCG in SODIUM CHLORIDE 0.9% 225 ML IV PRN (16:18)
[2021-11-10] MEDS: ASPIRIN EC 81 MG TABLET PO SCH (20:45)
[2021-11-10] MEDS: ATORVASTATIN 80 MG TABLET PO SCH (20:45)
[2021-11-10] MEDS: GABAPENTIN 600 MG TABLET PO SCH (20:45)
[2021-11-11] MEDS: INSULIN REGULAR 100 UNIT/ML SUBCUT SCH ×4 (00:42→17:50)
[2021-11-11] MEDS: ENOXAPARIN 60 MG/0.6 ML SYRINGE SUBCUT SCH ×2 (00:42→12:37)
[2021-11-11] MEDS: methylPREDNISolone SOD SUC 125 MG/2 ML VIAL IV SCH ×4 (00:42→23:04)
[2021-11-11] MEDS: ALBUTEROL/IPRATROPIUM 3 ML NEB RESP TX SCH ×6 (02:25→22:54)
[2021-11-11] MEDS: fentaNYL INJ 1,250 MCG in SODIUM CHLORIDE 0.9% 225 ML IV PRN ×2 (02:37→14:37)
[2021-11-11] MEDS: CEFEPIME 1,000 MG in SODIUM CHLORIDE 0.9% 100 ML IV SCH ×3 (03:05→20:18)
[2021-11-11 04:38] LABS: Hematocrit 24.7 VOL% (42.0-52.0); Hemoglobin 7.2 GM/DL (14.0-18.0); Immature Granulocytes % 0.8 %; Immature Granulocytes Absolute 0.05 #; Lymphocytes # 0.4 10*3/uL (1.4-4.0); Lymphocytes % 5.9 % (21.2-54.2); Mean Corpuscular HGB Conc 29.1 GM/DL (32-36); Mean Corpuscular Volume 97.2 FL (87-102); Mean Platelet Volume 10.6 FL (9.6-12.0); Monocytes # 0.3 10*3/uL (0.11-0.8); Monocytes % 4.2 % (1.7-12.7); Neutrophils % 89.1 % (38.7-73.9); Platelet Count 250 T/CUMM (130-400); Red Blood Count 2.54 MC/CUMM (3.8-5.5); Red Cell Distribution Width 16.2 % (9.3-17.3); White Blood Count 6.2 T/CUMM (4-12)
[2021-11-11 04:40] LABS: Arterial Base Excess iSTAT 9 MMOL/L (-2.5-2.5); Arterial O2 Saturation iSTAT 99 % (95-100); Arterial PCO2 iSTAT 43 MM HG (35-48); Arterial PO2 iSTAT 135 MM HG (80-95); Arterial Total CO2 iSTAT 34 MMO/L (23-27); Arterial pH iSTAT 7.496 (7.35-7.45)
[2021-11-11 05:05] LABS: Albumin 1.5 G/DL (3.4-5.0); Bilirubin,Total 0.5 MG/DL (0.20-1.00); Calcium 7.8 MG/DL (8.5-10.1); Osmolality,Calculated 326.1 MOS/KG (273-304); Potassium 3.2 MMOL/L (3.5-5.1)
[2021-11-11 05:14] LABS: Ferritin 742.5 ng/mL (26-388)
[2021-11-11] MEDS ORDERED: POTASSIUM CHLORIDE 20 MEQ TABLET PO PRN (07:35)
[2021-11-11] MEDS ORDERED: KETOCONAZOLE 2% CREAM 30 GM TUBE TOP SCH (09:30)
[2021-11-11] MEDS: FAMOTIDINE 20 MG/2 ML VIAL IV SCH ×2 (09:58→20:19)
[2021-11-11] MEDS: INSULIN GLARGINE 100 UNIT/ML SUBCUT SCH (09:58)
[2021-11-11] MEDS: ZINC GLUCONATE 50 MG TABLET PO SCH (09:59)
[2021-11-11] MEDS: CHOLECALCIFEROL 1,000 UNIT TABLET PO SCH (09:59)
[2021-11-11] MEDS: AZITHROMYCIN 250 MG TABLET PO SCH (09:59)
[2021-11-11] MEDS: GABAPENTIN 300 MG CAPSULE PO SCH (09:59)
[2021-11-11] MEDS: FERROUS SULFATE 325 MG TABLET PO SCH ×2 (09:59→20:18)
[2021-11-11] MEDS: CLOPIDOGREL 75 MG TABLET PO SCH (09:59)
[2021-11-11] MEDS: ISOSORBIDE MONONITRATE 30 MG TABLET PO SCH (09:59)
[2021-11-11] MEDS: DAPAGLIFLOZIN 10 MG TABLET PO SCH (09:59)
[2021-11-11] MEDS: carvediloL 6.25 MG TABLET PO SCH ×2 (09:59→20:18)
[2021-11-11] MEDS: SERTRALINE 50 MG TABLET PO SCH (10:16)
[2021-11-11] MEDS: DESITIN 4OZ/NYSTATIN 15 GRAM MIXTURE PASTE TOP SCH ×2 (10:16→20:54)
[2021-11-11] MEDS: BACITRACIN OINT 28.35 GM TUBE TOP SCH (10:16)
[2021-11-11] MEDS ORDERED: SODIUM CHLORIDE 0.9% 1,000 ML IV PRN (10:46)
[2021-11-11] MEDS: POTASSIUM BICARB EFFERVESCENT 20 MEQ TAB.EFF PER TUBE PRN ×3 (12:38→14:37)
[2021-11-11] MEDS: SODIUM CHLOR 0.45% KCL 20 MEQ 20 MEQ/1,000 ML BAG IV SCH (16:05)
[2021-11-11] MEDS: ASPIRIN EC 81 MG TABLET PO SCH (20:18)
[2021-11-11] MEDS: ATORVASTATIN 80 MG TABLET PO SCH (20:19)
[2021-11-11] MEDS: GABAPENTIN 600 MG TABLET PO SCH (20:19)
[2021-11-11 20:50] LABS: Hematocrit 27.7 VOL% (42.0-52.0); Hemoglobin 8.5 GM/DL (14.0-18.0); Immature Granulocytes % 0.7 %; Immature Granulocytes Absolute 0.05 #; Lymphocytes # 0.4 10*3/uL (1.4-4.0); Mean Corpuscular HGB Conc 30.7 GM/DL (32-36); Mean Corpuscular Volume 93.3 FL (87-102); Mean Platelet Volume 10.9 FL (9.6-12.0); Monocytes # 0.3 10*3/uL (0.11-0.8); Monocytes % 4.3 % (1.7-12.7); Platelet Count 217 T/CUMM (130-400); Red Blood Count 2.97 MC/CUMM (3.8-5.5)
[2021-11-11] MEDS: MAGNESIUM OXIDE 400 MG TABLET PO SCH (20:53)
[2021-11-12] MEDS: ENOXAPARIN 60 MG/0.6 ML SYRINGE SUBCUT SCH ×2 (00:49→12:06)
[2021-11-12] MEDS: INSULIN REGULAR 100 UNIT/ML SUBCUT SCH ×4 (00:49→18:10)
[2021-11-12] MEDS: fentaNYL INJ 1,250 MCG in SODIUM CHLORIDE 0.9% 225 ML IV PRN ×3 (00:56→23:41)
[2021-11-12] MEDS: CEFEPIME 1,000 MG in SODIUM CHLORIDE 0.9% 100 ML IV SCH ×4 (02:55→21:59)
[2021-11-12] MEDS: ALBUTEROL/IPRATROPIUM 3 ML NEB RESP TX SCH ×6 (03:01→23:40)
[2021-11-12] MEDS: SODIUM CHLOR 0.45% KCL 20 MEQ 20 MEQ/1,000 ML BAG IV SCH (03:06)
[2021-11-12 05:01] LABS: Hematocrit 29.5 VOL% (42.0-52.0); Immature Granulocytes % 0.7 %; Immature Granulocytes Absolute 0.04 #; Lymphocytes # 0.3 10*3/uL (1.4-4.0); Mean Corpuscular HGB Conc 30.5 GM/DL (32-36); Mean Corpuscular Volume 93.1 FL (87-102); Mean Platelet Volume 10.9 FL (9.6-12.0); Monocytes # 0.2 10*3/uL (0.11-0.8); Monocytes % 3.8 % (1.7-12.7); Neutrophils % 90.5 % (38.7-73.9); Platelet Count 210 T/CUMM (130-400); Red Blood Count 3.17 MC/CUMM (3.8-5.5); Red Cell Distribution Width 17.2 % (9.3-17.3); White Blood Count 6.1 T/CUMM (4-12)
[2021-11-12 05:18] LABS: Albumin 1.4 G/DL (3.4-5.0); Bilirubin,Total 0.6 MG/DL (0.20-1.00); Calcium 7.1 MG/DL (8.5-10.1); Osmolality,Calculated 313.3 MOS/KG (273-304); Potassium 4.9 MMOL/L (3.5-5.1); Total Protein 5.7 G/DL (6.4-8.2)
[2021-11-12 05:29] LABS: Ferritin 571.7 ng/mL (26-388)
[2021-11-12] MEDS: methylPREDNISolone SOD SUC 125 MG/2 ML VIAL IV SCH (06:22)
[2021-11-12 08:17] LABS: Arterial Base Excess iSTAT 4 MMOL/L (-2.5-2.5); Arterial Bicarbonate iSTAT 29.1 MMOL/L (20-26); Arterial O2 Saturation iSTAT 98 % (95-100); Arterial PCO2 iSTAT 47 MM HG (35-48); Arterial PO2 iSTAT 107 MM HG (80-95); Arterial Total CO2 iSTAT 31 MMO/L (23-27); Arterial pH iSTAT 7.399 (7.35-7.45)
[2021-11-12] MEDS ORDERED: INSULIN GLARGINE 100 UNIT/ML SUBCUT SCH ×2 (09:00)
[2021-11-12] MEDS: DAPAGLIFLOZIN 10 MG TABLET PO SCH (09:06)
[2021-11-12] MEDS: CHOLECALCIFEROL 1,000 UNIT TABLET PO SCH (09:06)
[2021-11-12] MEDS: GABAPENTIN 300 MG CAPSULE PO SCH (09:06)
[2021-11-12] MEDS: ZINC GLUCONATE 50 MG TABLET PO SCH (09:06)
[2021-11-12] MEDS: AZITHROMYCIN 250 MG TABLET PO SCH (09:06)
[2021-11-12] MEDS: FERROUS SULFATE 325 MG TABLET PO SCH ×2 (09:06→21:54)
[2021-11-12] MEDS: SERTRALINE 50 MG TABLET PO SCH (09:06)
[2021-11-12] MEDS: MAGNESIUM OXIDE 400 MG TABLET PO SCH ×2 (09:07→21:53)
[2021-11-12] MEDS: FAMOTIDINE 20 MG/2 ML VIAL IV SCH ×2 (09:07→21:56)
[2021-11-12] MEDS: CLOPIDOGREL 75 MG TABLET PO SCH (09:07)
[2021-11-12] MEDS: carvediloL 6.25 MG TABLET PO SCH ×2 (09:07→21:53)
[2021-11-12] MEDS: DESITIN 4OZ/NYSTATIN 15 GRAM MIXTURE PASTE TOP SCH ×2 (09:35→21:54)
[2021-11-12] MEDS: BACITRACIN OINT 28.35 GM TUBE TOP SCH (09:35)
[2021-11-12] MEDS: methylPREDNISolone SOD SUC 40 MG/1 ML VIAL IV SCH ×2 (14:28→21:54)
[2021-11-12] MEDS: ASPIRIN EC 81 MG TABLET PO SCH (21:53)
[2021-11-12] MEDS: ATORVASTATIN 80 MG TABLET PO SCH (21:55)
[2021-11-12] MEDS: GABAPENTIN 600 MG TABLET PO SCH (22:04)
[2021-11-13] MEDS: INSULIN REGULAR 100 UNIT/ML SUBCUT SCH ×4 (00:59→18:23)
[2021-11-13] MEDS: ENOXAPARIN 60 MG/0.6 ML SYRINGE SUBCUT SCH ×2 (00:59→11:38)
[2021-11-13] MEDS: ALBUTEROL/IPRATROPIUM 3 ML NEB RESP TX SCH ×6 (03:17→23:45)
[2021-11-13 03:58] LABS: Arterial Base Excess iSTAT 2 MMOL/L (-2.5-2.5); Arterial Bicarbonate iSTAT 27.3 MMOL/L (20-26); Arterial O2 Saturation iSTAT 99 % (95-100); Arterial PCO2 iSTAT 47 MM HG (35-48); Arterial PO2 iSTAT 162 MM HG (80-95); Arterial Total CO2 iSTAT 29 MMO/L (23-27); Arterial pH iSTAT 7.369 (7.35-7.45)
[2021-11-13 05:05] LABS: Hematocrit 31.6 VOL% (42.0-52.0); Hemoglobin 9.3 GM/DL (14.0-18.0); Immature Granulocytes % 0.8 %; Immature Granulocytes Absolute 0.06 #; Lymphocytes # 0.4 10*3/uL (1.4-4.0); Lymphocytes % 4.9 % (21.2-54.2); Mean Corpuscular HGB Conc 29.4 GM/DL (32-36); Mean Platelet Volume 11.2 FL (9.6-12.0); Monocytes # 0.5 10*3/uL (0.11-0.8); Monocytes % 6.2 % (1.7-12.7); Neutrophils % 88.1 % (38.7-73.9); Platelet Count 216 T/CUMM (130-400); Red Blood Count 3.29 MC/CUMM (3.8-5.5); Red Cell Distribution Width 16.8 % (9.3-17.3); White Blood Count 7.9 T/CUMM (4-12)
[2021-11-13 05:25] LABS: Calcium 7.2 MG/DL (8.5-10.1); Osmolality,Calculated 324.8 MOS/KG (273-304); Potassium 4.3 MMOL/L (3.5-5.1)
[2021-11-13 05:52] LABS: Hypochromia Slight; Lymphocytes 2 % (20-55); Platelet Estimate Normal; Total Cells Counted 100
[2021-11-13] MEDS: methylPREDNISolone SOD SUC 40 MG/1 ML VIAL IV SCH ×3 (07:34→21:41)
[2021-11-13] MEDS: GABAPENTIN 300 MG CAPSULE PO SCH (08:47)
[2021-11-13] MEDS: SERTRALINE 50 MG TABLET PO SCH (08:47)
[2021-11-13] MEDS: MAGNESIUM OXIDE 400 MG TABLET PO SCH ×2 (08:47→21:39)
[2021-11-13] MEDS: CLOPIDOGREL 75 MG TABLET PO SCH (08:47)
[2021-11-13] MEDS: FERROUS SULFATE 325 MG TABLET PO SCH ×2 (08:47→21:39)
[2021-11-13] MEDS: DAPAGLIFLOZIN 10 MG TABLET PO SCH (08:47)
[2021-11-13] MEDS: CHOLECALCIFEROL 1,000 UNIT TABLET PO SCH (08:47)
[2021-11-13] MEDS: carvediloL 6.25 MG TABLET PO SCH ×2 (08:48→21:39)
[2021-11-13] MEDS: ZINC GLUCONATE 50 MG TABLET PO SCH (08:48)
[2021-11-13] MEDS: FAMOTIDINE 20 MG/2 ML VIAL IV SCH ×2 (08:48→21:42)
[2021-11-13] MEDS: INSULIN GLARGINE 100 UNIT/ML SUBCUT SCH (09:03)
[2021-11-13] MEDS: BACITRACIN OINT 28.35 GM TUBE TOP SCH (09:25)
[2021-11-13] MEDS: DESITIN 4OZ/NYSTATIN 15 GRAM MIXTURE PASTE TOP SCH ×2 (09:26→21:42)
[2021-11-13] MEDS: fentaNYL INJ 1,250 MCG in SODIUM CHLORIDE 0.9% 225 ML IV PRN ×2 (11:00→22:52)
[2021-11-13] MEDS ORDERED: SODIUM CHLORIDE 0.45% 1,000 ML IV SCH (15:00)
[2021-11-13] MEDS: ASPIRIN EC 81 MG TABLET PO SCH (21:38)
[2021-11-13] MEDS: ATORVASTATIN 80 MG TABLET PO SCH (21:38)
[2021-11-13] MEDS: GABAPENTIN 600 MG TABLET PO SCH (21:39)
[2021-11-14] MEDS: ENOXAPARIN 60 MG/0.6 ML SYRINGE SUBCUT SCH ×2 (02:13→12:08)
[2021-11-14] MEDS: INSULIN REGULAR 100 UNIT/ML SUBCUT SCH ×4 (02:13→17:44)
[2021-11-14] MEDS: ALBUTEROL/IPRATROPIUM 3 ML NEB RESP TX SCH ×6 (02:35→23:45)
[2021-11-14 03:55] LABS: Arterial Base Excess iSTAT 1 MMOL/L (-2.5-2.5); Arterial Bicarbonate iSTAT 26.2 MMOL/L (20-26); Arterial O2 Saturation iSTAT 96 % (95-100); Arterial PCO2 iSTAT 46 MM HG (35-48); Arterial PO2 iSTAT 90 MM HG (80-95); Arterial Total CO2 iSTAT 28 MMO/L (23-27); Arterial pH iSTAT 7.362 (7.35-7.45)
[2021-11-14 05:51] LABS: Hematocrit 29.8 VOL% (42.0-52.0); Immature Granulocytes % 0.8 %; Immature Granulocytes Absolute 0.06 #; Lymphocytes # 0.5 10*3/uL (1.4-4.0); Lymphocytes % 6.2 % (21.2-54.2); Mean Corpuscular HGB Conc 30.2 GM/DL (32-36); Mean Corpuscular Volume 95.5 FL (87-102); Mean Platelet Volume 11.7 FL (9.6-12.0); Monocytes # 0.4 10*3/uL (0.11-0.8); Monocytes % 4.9 % (1.7-12.7); Neutrophils % 88.1 % (38.7-73.9); Platelet Count 174 T/CUMM (130-400); Red Blood Count 3.12 MC/CUMM (3.8-5.5); Red Cell Distribution Width 15.9 % (9.3-17.3); White Blood Count 7.5 T/CUMM (4-12)
[2021-11-14] MEDS: methylPREDNISolone SOD SUC 40 MG/1 ML VIAL IV SCH ×3 (06:35→21:32)
[2021-11-14 08:06] LABS: Potassium 4.5 MMOL/L (3.5-5.1)
[2021-11-14] MEDS ORDERED: SODIUM CHLORIDE 0.45% 1,000 ML IV SCH (08:30)
[2021-11-14] MEDS: FAMOTIDINE 20 MG/2 ML VIAL IV SCH ×2 (08:58→21:38)
[2021-11-14] MEDS: INSULIN GLARGINE 100 UNIT/ML SUBCUT SCH (09:00)
[2021-11-14] MEDS: ZINC GLUCONATE 50 MG TABLET PO SCH (09:01)
[2021-11-14] MEDS: carvediloL 6.25 MG TABLET PO SCH ×2 (09:01→21:31)
[2021-11-14] MEDS: MAGNESIUM OXIDE 400 MG TABLET PO SCH ×2 (09:01→21:13)
[2021-11-14] MEDS: FERROUS SULFATE 325 MG TABLET PO SCH ×2 (09:01→21:31)
[2021-11-14] MEDS: DAPAGLIFLOZIN 10 MG TABLET PO SCH (09:01)
[2021-11-14] MEDS: CHOLECALCIFEROL 1,000 UNIT TABLET PO SCH (09:01)
[2021-11-14] MEDS: SERTRALINE 50 MG TABLET PO SCH (09:02)
[2021-11-14] MEDS: GABAPENTIN 300 MG CAPSULE PO SCH (09:02)
[2021-11-14] MEDS: DESITIN 4OZ/NYSTATIN 15 GRAM MIXTURE PASTE TOP SCH ×2 (09:03→21:34)
[2021-11-14] MEDS: CLOPIDOGREL 75 MG TABLET PO SCH (09:03)
[2021-11-14] MEDS: BACITRACIN OINT 28.35 GM TUBE TOP SCH (09:03)
[2021-11-14] MEDS: fentaNYL INJ 1,250 MCG in SODIUM CHLORIDE 0.9% 225 ML IV PRN ×2 (10:27→21:30)
[2021-11-14] MEDS: ASPIRIN EC 81 MG TABLET PO SCH (21:31)
[2021-11-14] MEDS: ATORVASTATIN 80 MG TABLET PO SCH (21:31)
[2021-11-14] MEDS: GABAPENTIN 600 MG TABLET PO SCH (21:31)
[2021-11-15] MEDS: INSULIN REGULAR 100 UNIT/ML SUBCUT SCH ×4 (01:00→17:30)
[2021-11-15] MEDS: ENOXAPARIN 60 MG/0.6 ML SYRINGE SUBCUT SCH ×2 (01:01→13:54)
[2021-11-15] MEDS: ALBUTEROL/IPRATROPIUM 3 ML NEB RESP TX SCH ×6 (03:45→23:38)
[2021-11-15 03:46] LABS: Arterial Base Excess iSTAT -1 MMOL/L (-2.5-2.5); Arterial Bicarbonate iSTAT 25.1 MMOL/L (20-26); Arterial O2 Saturation iSTAT 94 % (95-100); Arterial PCO2 iSTAT 48 MM HG (35-48); Arterial PO2 iSTAT 75 MM HG (80-95); Arterial Total CO2 iSTAT 27 MMO/L (23-27); Arterial pH iSTAT 7.328 (7.35-7.45)
[2021-11-15 03:46] LABS: Arterial Base Excess iSTAT -2 MMOL/L (-2.5-2.5); Arterial Bicarbonate iSTAT 23.6 MMOL/L (20-26); Arterial O2 Saturation iSTAT 83 % (95-100); Arterial PCO2 iSTAT 45 MM HG (35-48); Arterial PO2 iSTAT 51 MM HG (80-95); Arterial Total CO2 iSTAT 25 MMO/L (23-27); Arterial pH iSTAT 7.327 (7.35-7.45)
[2021-11-15 05:17] LABS: Eosinophils % 0.1 % (0.00-10.9); Hematocrit 29.9 VOL% (42.0-52.0); Hemoglobin 8.9 GM/DL (14.0-18.0); Immature Granulocytes % 1.1 %; Lymphocytes # 0.5 10*3/uL (1.4-4.0); Lymphocytes % 5.8 % (21.2-54.2); Mean Corpuscular HGB Conc 29.8 GM/DL (32-36); Mean Corpuscular Volume 95.2 FL (87-102); Mean Platelet Volume 11.9 FL (9.6-12.0); Monocytes # 0.5 10*3/uL (0.11-0.8); Monocytes % 5.4 % (1.7-12.7); Neutrophils % 87.6 % (38.7-73.9); Platelet Count 159 T/CUMM (130-400); Red Blood Count 3.14 MC/CUMM (3.8-5.5); Red Cell Distribution Width 15.9 % (9.3-17.3); White Blood Count 8.8 T/CUMM (4-12)
[2021-11-15 05:48] LABS: Phosphorous 4.7 MG/DL (2.5-4.9)
[2021-11-15 06:14] LABS: Albumin 1.4 G/DL (3.4-5.0); Bilirubin,Total 0.5 MG/DL (0.20-1.00); Calcium 7.3 MG/DL (8.5-10.1); Ferritin 643.4 ng/mL (26-388); Osmolality,Calculated 309.7 MOS/KG (273-304); Potassium 4.7 MMOL/L (3.5-5.1); Total Protein 5.6 G/DL (6.4-8.2)
[2021-11-15] MEDS: methylPREDNISolone SOD SUC 40 MG/1 ML VIAL IV SCH ×3 (06:16→21:29)
[2021-11-15] MEDS: fentaNYL INJ 1,250 MCG in SODIUM CHLORIDE 0.9% 225 ML IV PRN (07:49)
[2021-11-15] MEDS: INSULIN GLARGINE 100 UNIT/ML SUBCUT SCH (10:07)
[2021-11-15] MEDS: ZINC GLUCONATE 50 MG TABLET PO SCH (10:07)
[2021-11-15] MEDS: FERROUS SULFATE 325 MG TABLET PO SCH ×2 (10:07→21:27)
[2021-11-15] MEDS: GABAPENTIN 300 MG CAPSULE PO SCH (10:08)
[2021-11-15] MEDS: DAPAGLIFLOZIN 10 MG TABLET PO SCH (10:08)
[2021-11-15] MEDS: CHOLECALCIFEROL 1,000 UNIT TABLET PO SCH (10:08)
[2021-11-15] MEDS: carvediloL 6.25 MG TABLET PO SCH ×2 (10:08→21:27)
[2021-11-15] MEDS: CLOPIDOGREL 75 MG TABLET PO SCH (10:08)
[2021-11-15] MEDS: SERTRALINE 50 MG TABLET PO SCH (10:08)
[2021-11-15] MEDS: DESITIN 4OZ/NYSTATIN 15 GRAM MIXTURE PASTE TOP SCH ×2 (10:09→21:28)
[2021-11-15] MEDS: BACITRACIN OINT 28.35 GM TUBE TOP SCH (10:09)
[2021-11-15] MEDS: FAMOTIDINE 20 MG/2 ML VIAL IV SCH ×2 (10:09→21:27)
[2021-11-15] MEDS: GABAPENTIN 600 MG TABLET PO SCH (21:27)
[2021-11-15] MEDS: ASPIRIN EC 81 MG TABLET PO SCH (21:27)
[2021-11-16] MEDS: ENOXAPARIN 60 MG/0.6 ML SYRINGE SUBCUT SCH ×3 (00:42→23:25)
[2021-11-16] MEDS: INSULIN REGULAR 100 UNIT/ML SUBCUT SCH ×5 (00:42→23:25)
[2021-11-16] MEDS: fentaNYL INJ 1,250 MCG in SODIUM CHLORIDE 0.9% 225 ML IV PRN ×2 (00:43→13:22)
[2021-11-16] MEDS: ALBUTEROL/IPRATROPIUM 3 ML NEB RESP TX SCH ×6 (03:07→23:07)
[2021-11-16 04:23] LABS: ABG Base Excess -0.1 MMOL/L (-2.5-2.5); ABG HCO3 24.3 MMOL/L (20-26); ABG Oxygen Saturation 95.9 % (95-100); ABG PCO2 37.9 MM HG (35-48); ABG PH 7.415 (7.35-7.45); ABG PO2 79.3 MM HG (80-95); ABG TCO2 22.4 MMOL/L (23-27)
[2021-11-16 04:27] LABS: Hematocrit 28.2 VOL% (42.0-52.0); Hemoglobin 8.5 GM/DL (14.0-18.0); Immature Granulocytes % 1.1 %; Immature Granulocytes Absolute 0.08 #; Lymphocytes # 0.5 10*3/uL (1.4-4.0); Lymphocytes % 6.3 % (21.2-54.2); Mean Corpuscular HGB Conc 30.1 GM/DL (32-36); Mean Corpuscular Volume 93.4 FL (87-102); Mean Platelet Volume 11.8 FL (9.6-12.0); Monocytes # 0.5 10*3/uL (0.11-0.8); Monocytes % 6.1 % (1.7-12.7); Neutrophils % 86.5 % (38.7-73.9); Platelet Count 142 T/CUMM (130-400); Red Blood Count 3.02 MC/CUMM (3.8-5.5); Red Cell Distribution Width 15.6 % (9.3-17.3); White Blood Count 7.6 T/CUMM (4-12)
[2021-11-16 04:39] LABS: Calcium 7.3 MG/DL (8.5-10.1); Osmolality,Calculated 306.7 MOS/KG (273-304)
[2021-11-16] MEDS: methylPREDNISolone SOD SUC 40 MG/1 ML VIAL IV SCH ×3 (06:46→21:08)
[2021-11-16] MEDS: FAMOTIDINE 20 MG/2 ML VIAL IV SCH ×2 (09:59→20:53)
[2021-11-16] MEDS: FERROUS SULFATE 325 MG TABLET PO SCH ×2 (09:59→20:53)
[2021-11-16] MEDS: INSULIN GLARGINE 100 UNIT/ML SUBCUT SCH (09:59)
[2021-11-16] MEDS: carvediloL 6.25 MG TABLET PO SCH ×2 (09:59→20:53)
[2021-11-16] MEDS: BACITRACIN OINT 28.35 GM TUBE TOP SCH (09:59)
[2021-11-16] MEDS: GABAPENTIN 300 MG CAPSULE PO SCH (09:59)
[2021-11-16] MEDS: DAPAGLIFLOZIN 10 MG TABLET PO SCH (09:59)
[2021-11-16] MEDS: CLOPIDOGREL 75 MG TABLET PO SCH (10:00)
[2021-11-16] MEDS: SERTRALINE 50 MG TABLET PO SCH (10:00)
[2021-11-16] MEDS: CHOLECALCIFEROL 1,000 UNIT TABLET PO SCH (10:00)
[2021-11-16] MEDS: ZINC GLUCONATE 50 MG TABLET PO SCH (10:00)
[2021-11-16] MEDS: DESITIN 4OZ/NYSTATIN 15 GRAM MIXTURE PASTE TOP SCH ×2 (10:00→20:53)
[2021-11-16] MEDS: PIPERACILLIN/TAZOBACTAM 3,375 MG in SODIUM CHLORIDE 0.9% 100 ML IV SCH ×2 (10:01→18:37)
[2021-11-16] MEDS: GABAPENTIN 600 MG TABLET PO SCH (20:53)
[2021-11-16] MEDS: ASPIRIN EC 81 MG TABLET PO SCH (20:53)
[2021-11-17] MEDS: PIPERACILLIN/TAZOBACTAM 3,375 MG in SODIUM CHLORIDE 0.9% 100 ML IV SCH ×3 (01:22→17:15)
[2021-11-17] MEDS: fentaNYL INJ 1,250 MCG in SODIUM CHLORIDE 0.9% 225 ML IV PRN ×2 (01:22→12:52)
[2021-11-17] MEDS: ALBUTEROL/IPRATROPIUM 3 ML NEB RESP TX SCH ×6 (03:18→23:51)
[2021-11-17 04:43] LABS: ABG Base Excess -2.1 MMOL/L (-2.5-2.5); ABG HCO3 22.6 MMOL/L (20-26); ABG Oxygen Saturation 96.8 % (95-100); ABG PCO2 45.6 MM HG (35-48); ABG PH 7.327 (7.35-7.45); ABG TCO2 22.2 MMOL/L (23-27)
[2021-11-17 04:45] LABS: Basophils % 0.1 % (0.0-0.8); Eosinophils % 0.1 % (0.00-10.9); Hematocrit 30.2 VOL% (42.0-52.0); Hemoglobin 8.9 GM/DL (14.0-18.0); Immature Granulocytes % 1.8 %; Immature Granulocytes Absolute 0.17 #; Lymphocytes # 0.4 10*3/uL (1.4-4.0); Lymphocytes % 4.6 % (21.2-54.2); Mean Corpuscular HGB Conc 29.5 GM/DL (32-36); Mean Platelet Volume 12.2 FL (9.6-12.0); Monocytes # 0.6 10*3/uL (0.11-0.8); Neutrophils % 87.4 % (38.7-73.9); Platelet Count 148 T/CUMM (130-400); Red Blood Count 3.18 MC/CUMM (3.8-5.5); Red Cell Distribution Width 15.5 % (9.3-17.3); White Blood Count 9.4 T/CUMM (4-12)
[2021-11-17 04:58] LABS: Calcium 7.2 MG/DL (8.5-10.1); Osmolality,Calculated 310.4 MOS/KG (273-304); Potassium 5.2 MMOL/L (3.5-5.1)
[2021-11-17 05:03] LABS: Hypochromia Slight; Lymphocytes 8 % (20-55); Platelet Estimate Adequate; Total Cells Counted 100
[2021-11-17] MEDS: INSULIN REGULAR 100 UNIT/ML SUBCUT SCH ×3 (05:55→18:23)
[2021-11-17] MEDS: methylPREDNISolone SOD SUC 40 MG/1 ML VIAL IV SCH ×3 (05:55→23:05)
[2021-11-17] MEDS: BACITRACIN OINT 28.35 GM TUBE TOP SCH (09:45)
[2021-11-17] MEDS: DESITIN 4OZ/NYSTATIN 15 GRAM MIXTURE PASTE TOP SCH ×2 (09:45→20:44)
[2021-11-17] MEDS: carvediloL 6.25 MG TABLET PO SCH ×2 (10:22→20:43)
[2021-11-17] MEDS: DAPAGLIFLOZIN 10 MG TABLET PO SCH (10:22)
[2021-11-17] MEDS: ZINC GLUCONATE 50 MG TABLET PO SCH (10:22)
[2021-11-17] MEDS: GABAPENTIN 300 MG CAPSULE PO SCH (10:22)
[2021-11-17] MEDS: CHOLECALCIFEROL 1,000 UNIT TABLET PO SCH (10:23)
[2021-11-17] MEDS: FERROUS SULFATE 325 MG TABLET PO SCH ×2 (10:23→20:43)
[2021-11-17] MEDS: SERTRALINE 50 MG TABLET PO SCH (10:24)
[2021-11-17] MEDS: FAMOTIDINE 20 MG/2 ML VIAL IV SCH ×2 (10:24→20:43)
[2021-11-17] MEDS: CLOPIDOGREL 75 MG TABLET PO SCH (10:24)
[2021-11-17] MEDS: INSULIN GLARGINE 100 UNIT/ML SUBCUT SCH (10:28)
[2021-11-17] MEDS ORDERED: ALBUMIN 25% 25 GM/100 ML VIAL IV SCH (11:00)
[2021-11-17] MEDS: ENOXAPARIN 60 MG/0.6 ML SYRINGE SUBCUT SCH (12:38)
[2021-11-17] MEDS: FUROSEMIDE 40 MG/4 ML VIAL IV SCH ×2 (13:24→18:03)
[2021-11-17] MEDS ORDERED: ROCURONIUM 100 MG/10 ML VIAL IV ONE ×2 (17:49→18:00)
[2021-11-17] MEDS ORDERED: ROCURONIUM 500 MG in SODIUM CHLORIDE 0.9% 500 ML IV PRN (17:59)
[2021-11-17 18:04] LABS: Arterial Base Excess iSTAT -3 MMOL/L (-2.5-2.5); Arterial O2 Saturation iSTAT 93 % (95-100); Arterial PCO2 iSTAT 53 MM HG (35-48); Arterial PO2 iSTAT 79 MM HG (80-95); Arterial Total CO2 iSTAT 26 MMO/L (23-27); Arterial pH iSTAT 7.262 (7.35-7.45)
[2021-11-17] MEDS: MIDAZOLAM 100 MG in SODIUM CHLORIDE 0.9% 80 ML IV PRN (18:35)
[2021-11-17] MEDS: ASPIRIN EC 81 MG TABLET PO SCH (20:43)
[2021-11-17] MEDS: GABAPENTIN 600 MG TABLET PO SCH (20:43)
[2021-11-18] MEDS: fentaNYL INJ 1,250 MCG in SODIUM CHLORIDE 0.9% 225 ML IV PRN ×2 (00:58→12:46)
[2021-11-18] MEDS: ENOXAPARIN 60 MG/0.6 ML SYRINGE SUBCUT SCH ×2 (01:21→11:46)
[2021-11-18] MEDS: INSULIN REGULAR 100 UNIT/ML SUBCUT SCH ×4 (01:21→17:37)
[2021-11-18] MEDS: PIPERACILLIN/TAZOBACTAM 3,375 MG in SODIUM CHLORIDE 0.9% 100 ML IV SCH ×3 (01:35→17:37)
[2021-11-18] MEDS: ALBUTEROL/IPRATROPIUM 3 ML NEB RESP TX SCH ×5 (03:36→19:36)
[2021-11-18 03:41] LABS: ABG Base Excess -3.4 MMOL/L (-2.5-2.5); ABG HCO3 21.5 MMOL/L (20-26); ABG Oxygen Saturation 97.9 % (95-100); ABG TCO2 24.9 MMOL/L (23-27); Basophils % 0.2 % (0.0-0.8); Hematocrit 31.3 VOL% (42.0-52.0); Hemoglobin 9.1 GM/DL (14.0-18.0); Immature Granulocytes % 2.5 %; Immature Granulocytes Absolute 0.32 #; Lymphocytes # 0.4 10*3/uL (1.4-4.0); Lymphocytes % 2.8 % (21.2-54.2); Mean Corpuscular HGB Conc 29.1 GM/DL (32-36); Mean Corpuscular Volume 96.6 FL (87-102); Mean Platelet Volume 11.7 FL (9.6-12.0); Monocytes # 0.9 10*3/uL (0.11-0.8); Monocytes % 6.9 % (1.7-12.7); Neutrophils % 87.6 % (38.7-73.9); Platelet Count 149 T/CUMM (130-400); Red Blood Count 3.24 MC/CUMM (3.8-5.5); Red Cell Distribution Width 15.5 % (9.3-17.3); White Blood Count 12.7 T/CUMM (4-12)
[2021-11-18] MEDS: FUROSEMIDE 40 MG/4 ML VIAL IV SCH (03:42)
[2021-11-18 03:44] LABS: ABG PCO2 70.9 MM HG (35-48); ABG PH 7.176 (7.35-7.45)
[2021-11-18 03:58] LABS: Calcium 7.5 MG/DL (8.5-10.1); Osmolality,Calculated 311.3 MOS/KG (273-304); Potassium 5.2 MMOL/L (3.5-5.1)
[2021-11-18 04:04] LABS: Lymphocytes 5 % (20-55); Platelet Estimate Normal; Total Cells Counted 100
[2021-11-18] MEDS: methylPREDNISolone SOD SUC 40 MG/1 ML VIAL IV SCH ×3 (05:53→21:00)
[2021-11-18] MEDS: MIDAZOLAM 100 MG in SODIUM CHLORIDE 0.9% 80 ML IV PRN ×2 (06:34→16:36)
[2021-11-18] MEDS: FAMOTIDINE 20 MG/2 ML VIAL IV SCH ×2 (08:33→20:50)
[2021-11-18] MEDS: INSULIN GLARGINE 100 UNIT/ML SUBCUT SCH (08:37)
[2021-11-18] MEDS: SERTRALINE 50 MG TABLET PO SCH (08:38)
[2021-11-18] MEDS: CHOLECALCIFEROL 1,000 UNIT TABLET PO SCH (08:38)
[2021-11-18] MEDS: carvediloL 6.25 MG TABLET PO SCH ×2 (08:38→20:50)
[2021-11-18] MEDS: GABAPENTIN 300 MG CAPSULE PO SCH (08:39)
[2021-11-18] MEDS: CLOPIDOGREL 75 MG TABLET PO SCH (08:39)
[2021-11-18] MEDS: FERROUS SULFATE 325 MG TABLET PO SCH ×2 (08:39→20:50)
[2021-11-18] MEDS: DAPAGLIFLOZIN 10 MG TABLET PO SCH (08:39)
[2021-11-18] MEDS: ZINC GLUCONATE 50 MG TABLET PO SCH (08:39)
[2021-11-18] MEDS: BACITRACIN OINT 28.35 GM TUBE TOP SCH (08:40)
[2021-11-18] MEDS: DESITIN 4OZ/NYSTATIN 15 GRAM MIXTURE PASTE TOP SCH ×2 (08:40→20:51)
[2021-11-18] MEDS: MICAFUNGIN 100 MG in SODIUM CHLORIDE 0.9% 100 ML IV SCH (09:09)
[2021-11-18] MEDS: GABAPENTIN 600 MG TABLET PO SCH (20:50)
[2021-11-18] MEDS: ASPIRIN EC 81 MG TABLET PO SCH (20:50)
[2021-11-19] MEDS: ALBUTEROL/IPRATROPIUM 3 ML NEB RESP TX SCH ×7 (00:05→23:56)
[2021-11-19] MEDS: INSULIN REGULAR 100 UNIT/ML SUBCUT SCH ×5 (00:09→23:31)
[2021-11-19] MEDS: ENOXAPARIN 60 MG/0.6 ML SYRINGE SUBCUT SCH ×3 (00:09→23:31)
[2021-11-19] MEDS: fentaNYL INJ 1,250 MCG in SODIUM CHLORIDE 0.9% 225 ML IV PRN ×3 (00:14→17:18)
[2021-11-19] MEDS: MORPHINE 2 MG/1 ML SYRINGE IV PRN (01:09)
[2021-11-19] MEDS: PIPERACILLIN/TAZOBACTAM 3,375 MG in SODIUM CHLORIDE 0.9% 100 ML IV SCH ×3 (01:50→17:37)
[2021-11-19] MEDS: MIDAZOLAM 100 MG in SODIUM CHLORIDE 0.9% 80 ML IV PRN ×3 (02:15→22:00)
[2021-11-19 04:18] LABS: ABG Base Excess -1.6 MMOL/L (-2.5-2.5); ABG HCO3 23.1 MMOL/L (20-26); ABG Oxygen Saturation 98.9 % (95-100); ABG PCO2 47.7 MM HG (35-48); ABG PH 7.322 (7.35-7.45)
[2021-11-19 04:37] LABS: Basophils % 0.1 % (0.0-0.8); Eosinophils % 0.1 % (0.00-10.9); Hematocrit 27.6 VOL% (42.0-52.0); Hemoglobin 8.1 GM/DL (14.0-18.0); Immature Granulocytes % 2.1 %; Immature Granulocytes Absolute 0.16 #; Lymphocytes # 0.5 10*3/uL (1.4-4.0); Lymphocytes % 6.6 % (21.2-54.2); Mean Corpuscular HGB Conc 29.3 GM/DL (32-36); Mean Corpuscular Volume 94.5 FL (87-102); Monocytes # 0.5 10*3/uL (0.11-0.8); Monocytes % 6.3 % (1.7-12.7); Neutrophils % 84.8 % (38.7-73.9); Platelet Count 139 T/CUMM (130-400); Red Blood Count 2.92 MC/CUMM (3.8-5.5); Red Cell Distribution Width 15.5 % (9.3-17.3); White Blood Count 7.6 T/CUMM (4-12)
[2021-11-19 04:48] LABS: Calcium 7.8 MG/DL (8.5-10.1); Osmolality,Calculated 313.1 MOS/KG (273-304); Potassium 4.9 MMOL/L (3.5-5.1)
[2021-11-19] MEDS: methylPREDNISolone SOD SUC 40 MG/1 ML VIAL IV SCH ×3 (05:35→21:11)
[2021-11-19] MEDS: carvediloL 6.25 MG TABLET PO SCH ×2 (10:22→21:12)
[2021-11-19] MEDS: BACITRACIN OINT 28.35 GM TUBE TOP SCH (10:22)
[2021-11-19] MEDS: DAPAGLIFLOZIN 10 MG TABLET PO SCH (10:22)
[2021-11-19] MEDS: FERROUS SULFATE 325 MG TABLET PO SCH ×2 (10:22→21:04)
[2021-11-19] MEDS: CLOPIDOGREL 75 MG TABLET PO SCH (10:23)
[2021-11-19] MEDS: ZINC GLUCONATE 50 MG TABLET PO SCH (10:23)
[2021-11-19] MEDS: GABAPENTIN 300 MG CAPSULE PO SCH (10:23)
[2021-11-19] MEDS: CHOLECALCIFEROL 1,000 UNIT TABLET PO SCH (10:23)
[2021-11-19] MEDS: SERTRALINE 50 MG TABLET PO SCH (10:23)
[2021-11-19] MEDS: FAMOTIDINE 20 MG/2 ML VIAL IV SCH ×2 (10:23→21:12)
[2021-11-19] MEDS: DESITIN 4OZ/NYSTATIN 15 GRAM MIXTURE PASTE TOP SCH ×2 (10:23→21:11)
[2021-11-19] MEDS: MICAFUNGIN 100 MG in SODIUM CHLORIDE 0.9% 100 ML IV SCH (10:23)
[2021-11-19] MEDS: INSULIN GLARGINE 100 UNIT/ML SUBCUT SCH (10:23)
[2021-11-19] MEDS: ASPIRIN EC 81 MG TABLET PO SCH (21:12)
[2021-11-19] MEDS: FERROUS SULFATE 300 MG/5 ML UDCUP PO SCH (21:12)
[2021-11-19] MEDS: GABAPENTIN 600 MG TABLET PO SCH (21:17)
[2021-11-20] MEDS: fentaNYL INJ 1,250 MCG in SODIUM CHLORIDE 0.9% 225 ML IV PRN ×4 (00:25→21:39)
[2021-11-20] MEDS: PIPERACILLIN/TAZOBACTAM 3,375 MG in SODIUM CHLORIDE 0.9% 100 ML IV SCH ×2 (00:34→10:47)
[2021-11-20] MEDS: ALBUTEROL/IPRATROPIUM 3 ML NEB RESP TX SCH ×6 (02:12→23:56)
[2021-11-20 04:46] LABS: ABG HCO3 22.7 MMOL/L (20-26); ABG Oxygen Saturation 98.1 % (95-100); ABG PCO2 47.1 MM HG (35-48); ABG PH 7.318 (7.35-7.45); ABG TCO2 22.8 MMOL/L (23-27)
[2021-11-20 04:53] LABS: Eosinophils % 0.1 % (0.00-10.9); Hematocrit 24.9 VOL% (42.0-52.0); Hemoglobin 7.3 GM/DL (14.0-18.0); Immature Granulocytes % 2.3 %; Immature Granulocytes Absolute 0.17 #; Lymphocytes # 0.4 10*3/uL (1.4-4.0); Lymphocytes % 5.5 % (21.2-54.2); Mean Corpuscular HGB Conc 29.3 GM/DL (32-36); Mean Corpuscular Volume 96.5 FL (87-102); Mean Platelet Volume 11.5 FL (9.6-12.0); Monocytes # 0.5 10*3/uL (0.11-0.8); Monocytes % 6.6 % (1.7-12.7); Neutrophils % 85.5 % (38.7-73.9); Platelet Count 128 T/CUMM (130-400); Red Blood Count 2.58 MC/CUMM (3.8-5.5); Red Cell Distribution Width 15.6 % (9.3-17.3); White Blood Count 7.3 T/CUMM (4-12)
[2021-11-20 05:03] LABS: Calcium 7.7 MG/DL (8.5-10.1); Osmolality,Calculated 320.8 MOS/KG (273-304); Potassium 5.3 MMOL/L (3.5-5.1)
[2021-11-20] MEDS: methylPREDNISolone SOD SUC 40 MG/1 ML VIAL IV SCH ×3 (05:25→21:24)
[2021-11-20] MEDS: INSULIN REGULAR 100 UNIT/ML SUBCUT SCH ×4 (05:25→23:38)
[2021-11-20] MEDS: MIDAZOLAM 100 MG in SODIUM CHLORIDE 0.9% 80 ML IV PRN ×2 (08:45→21:07)
[2021-11-20] MEDS: BACITRACIN OINT 28.35 GM TUBE TOP SCH (10:45)
[2021-11-20] MEDS: INSULIN GLARGINE 100 UNIT/ML SUBCUT SCH (10:46)
[2021-11-20] MEDS: GABAPENTIN 300 MG CAPSULE PO SCH (10:46)
[2021-11-20] MEDS: DAPAGLIFLOZIN 10 MG TABLET PO SCH (10:46)
[2021-11-20] MEDS: MICAFUNGIN 100 MG in SODIUM CHLORIDE 0.9% 100 ML IV SCH (10:46)
[2021-11-20] MEDS: FERROUS SULFATE 300 MG/5 ML UDCUP PO SCH ×2 (10:46→20:34)
[2021-11-20] MEDS: carvediloL 6.25 MG TABLET PO SCH ×2 (10:46→20:33)
[2021-11-20] MEDS: FAMOTIDINE 20 MG/2 ML VIAL IV SCH ×2 (10:46→20:35)
[2021-11-20] MEDS: DESITIN 4OZ/NYSTATIN 15 GRAM MIXTURE PASTE TOP SCH (10:47)
[2021-11-20] MEDS: CLOPIDOGREL 75 MG TABLET PO SCH (10:47)
[2021-11-20] MEDS: ZINC GLUCONATE 50 MG TABLET PO SCH (10:47)
[2021-11-20] MEDS: SERTRALINE 50 MG TABLET PO SCH (10:47)
[2021-11-20] MEDS: CHOLECALCIFEROL 1,000 UNIT TABLET PO SCH (10:47)
[2021-11-20] MEDS: ENOXAPARIN 60 MG/0.6 ML SYRINGE SUBCUT SCH (13:29)
[2021-11-20] MEDS: MEROPENEM 500 MG in SODIUM CHLORIDE 0.9% 100 ML IV SCH ×2 (15:57→20:34)
[2021-11-20] MEDS: GABAPENTIN 600 MG TABLET PO SCH (20:33)
[2021-11-20] MEDS: ASPIRIN EC 81 MG TABLET PO SCH (20:34)
[2021-11-21] MEDS: DESITIN 4OZ/NYSTATIN 15 GRAM MIXTURE PASTE TOP SCH ×2 (02:53→08:06)
[2021-11-21] MEDS: ENOXAPARIN 60 MG/0.6 ML SYRINGE SUBCUT SCH ×2 (03:00→16:09)
[2021-11-21] MEDS: fentaNYL INJ 1,250 MCG in SODIUM CHLORIDE 0.9% 225 ML IV PRN ×3 (04:29→22:18)
[2021-11-21 04:30] LABS: ABG Base Excess -2.4 MMOL/L (-2.5-2.5); ABG HCO3 22.3 MMOL/L (20-26); ABG Oxygen Saturation 89.9 % (95-100); ABG PH 7.355 (7.35-7.45); ABG PO2 60.4 MM HG (80-95); ABG TCO2 21.5 MMOL/L (23-27)
[2021-11-21] MEDS: ALBUTEROL/IPRATROPIUM 3 ML NEB RESP TX SCH ×6 (04:35→23:41)
[2021-11-21] MEDS: MEROPENEM 500 MG in SODIUM CHLORIDE 0.9% 100 ML IV SCH ×4 (04:37→20:39)
[2021-11-21 04:43] LABS: Eosinophils % 0.3 % (0.00-10.9); Hematocrit 25.9 VOL% (42.0-52.0); Hemoglobin 7.6 GM/DL (14.0-18.0); Immature Granulocytes % 1.6 %; Immature Granulocytes Absolute 0.12 #; Lymphocytes # 0.3 10*3/uL (1.4-4.0); Lymphocytes % 4.7 % (21.2-54.2); Mean Corpuscular HGB Conc 29.3 GM/DL (32-36); Mean Corpuscular Volume 95.6 FL (87-102); Mean Platelet Volume 11.3 FL (9.6-12.0); Monocytes # 0.3 10*3/uL (0.11-0.8); Monocytes % 4.5 % (1.7-12.7); Neutrophils % 88.9 % (38.7-73.9); Platelet Count 143 T/CUMM (130-400); Red Blood Count 2.71 MC/CUMM (3.8-5.5); Red Cell Distribution Width 15.5 % (9.3-17.3); White Blood Count 7.3 T/CUMM (4-12)
[2021-11-21 04:50] LABS: Osmolality,Calculated 319.8 MOS/KG (273-304); Potassium 5.2 MMOL/L (3.5-5.1)
[2021-11-21 05:02] LABS: Hypochromia Slight; Lymphocytes 4 % (20-55); Platelet Estimate Adequate; Total Cells Counted 100
[2021-11-21] MEDS: INSULIN REGULAR 100 UNIT/ML SUBCUT SCH ×3 (06:10→18:28)
[2021-11-21] MEDS: methylPREDNISolone SOD SUC 40 MG/1 ML VIAL IV SCH ×3 (06:10→20:36)
[2021-11-21] MEDS: DAPAGLIFLOZIN 10 MG TABLET PO SCH (08:04)
[2021-11-21] MEDS: BACITRACIN OINT 28.35 GM TUBE TOP SCH (08:04)
[2021-11-21] MEDS: carvediloL 6.25 MG TABLET PO SCH ×2 (08:04→20:24)
[2021-11-21] MEDS: FERROUS SULFATE 300 MG/5 ML UDCUP PO SCH ×2 (08:05→20:23)
[2021-11-21] MEDS: INSULIN GLARGINE 100 UNIT/ML SUBCUT SCH (08:05)
[2021-11-21] MEDS: FAMOTIDINE 20 MG/2 ML VIAL IV SCH ×2 (08:05→20:38)
[2021-11-21] MEDS: GABAPENTIN 300 MG CAPSULE PO SCH (08:05)
[2021-11-21] MEDS: MICAFUNGIN 100 MG in SODIUM CHLORIDE 0.9% 100 ML IV SCH (08:05)
[2021-11-21] MEDS: ZINC GLUCONATE 50 MG TABLET PO SCH (08:06)
[2021-11-21] MEDS: SERTRALINE 50 MG TABLET PO SCH (08:06)
[2021-11-21] MEDS: CLOPIDOGREL 75 MG TABLET PO SCH (08:06)
[2021-11-21] MEDS: CHOLECALCIFEROL 1,000 UNIT TABLET PO SCH (08:06)
[2021-11-21] MEDS ORDERED: FUROSEMIDE 40 MG/4 ML VIAL IV ONE (08:41)
[2021-11-21] MEDS: MIDAZOLAM 100 MG in SODIUM CHLORIDE 0.9% 80 ML IV PRN ×2 (11:08→22:56)
[2021-11-21] MEDS: GABAPENTIN 600 MG TABLET PO SCH (20:24)
[2021-11-21] MEDS: ASPIRIN EC 81 MG TABLET PO SCH (20:24)
[2021-11-22] MEDS: ENOXAPARIN 60 MG/0.6 ML SYRINGE SUBCUT SCH ×2 (00:22→11:26)
[2021-11-22] MEDS: INSULIN REGULAR 100 UNIT/ML SUBCUT SCH ×4 (00:23→17:47)
[2021-11-22] MEDS: DESITIN 4OZ/NYSTATIN 15 GRAM MIXTURE PASTE TOP SCH ×3 (02:50→21:01)
[2021-11-22] MEDS: MEROPENEM 500 MG in SODIUM CHLORIDE 0.9% 100 ML IV SCH ×3 (02:53→17:47)
[2021-11-22] MEDS: ALBUTEROL/IPRATROPIUM 3 ML NEB RESP TX SCH ×6 (03:41→23:11)
[2021-11-22 03:49] LABS: ABG Base Excess -1.7 MMOL/L (-2.5-2.5); ABG Oxygen Saturation 97.9 % (95-100); ABG PCO2 43.7 MM HG (35-48); ABG PH 7.346 (7.35-7.45); ABG TCO2 22.6 MMOL/L (23-27)
[2021-11-22 03:53] LABS: Eosinophils % 0.3 % (0.00-10.9); Hematocrit 24.2 VOL% (42.0-52.0); Hemoglobin 7.2 GM/DL (14.0-18.0); Immature Granulocytes % 1.2 %; Immature Granulocytes Absolute 0.09 #; Lymphocytes # 0.3 10*3/uL (1.4-4.0); Lymphocytes % 4.5 % (21.2-54.2); Mean Corpuscular HGB Conc 29.8 GM/DL (32-36); Mean Corpuscular Volume 93.8 FL (87-102); Mean Platelet Volume 11.2 FL (9.6-12.0); Monocytes # 0.3 10*3/uL (0.11-0.8); Monocytes % 3.8 % (1.7-12.7); Neutrophils % 90.2 % (38.7-73.9); Platelet Count 158 T/CUMM (130-400); Red Blood Count 2.58 MC/CUMM (3.8-5.5); Red Cell Distribution Width 15.6 % (9.3-17.3); White Blood Count 7.3 T/CUMM (4-12)
[2021-11-22 04:08] LABS: Calcium 8.1 MG/DL (8.5-10.1); Osmolality,Calculated 320.7 MOS/KG (273-304); Potassium 5.2 MMOL/L (3.5-5.1)
[2021-11-22 04:14] LABS: Lymphocytes 3 % (20-55); Platelet Estimate Adequate; Total Cells Counted 100
[2021-11-22 04:15] LABS: Hypochromia Slight
[2021-11-22 04:22] LABS: Phosphorous 3.6 MG/DL (2.5-4.9)
[2021-11-22] MEDS ORDERED: SODIUM POLYSTYRENE SULFATE 15 GM/60 ML BOTTLE PO ONE (08:10)
[2021-11-22] MEDS ORDERED: ALBUMIN 5% 25 GM/500 ML VIAL IV ONE (08:10)
[2021-11-22] MEDS: methylPREDNISolone SOD SUC 40 MG/1 ML VIAL IV SCH ×2 (08:56→21:01)
[2021-11-22] MEDS: GABAPENTIN 300 MG CAPSULE PO SCH (09:13)
[2021-11-22] MEDS: ZINC GLUCONATE 50 MG TABLET PO SCH (09:14)
[2021-11-22] MEDS: FERROUS SULFATE 300 MG/5 ML UDCUP PO SCH ×2 (09:14→21:00)
[2021-11-22] MEDS: CHOLECALCIFEROL 1,000 UNIT TABLET PO SCH (09:14)
[2021-11-22] MEDS: carvediloL 6.25 MG TABLET PO SCH ×2 (09:14→21:00)
[2021-11-22] MEDS: SERTRALINE 50 MG TABLET PO SCH (09:14)
[2021-11-22] MEDS: CLOPIDOGREL 75 MG TABLET PO SCH (09:14)
[2021-11-22] MEDS: DAPAGLIFLOZIN 10 MG TABLET PO SCH (09:14)
[2021-11-22] MEDS: BACITRACIN OINT 28.35 GM TUBE TOP SCH (09:15)
[2021-11-22] MEDS: INSULIN GLARGINE 100 UNIT/ML SUBCUT SCH (09:15)
[2021-11-22] MEDS: fentaNYL INJ 1,250 MCG in SODIUM CHLORIDE 0.9% 225 ML IV PRN ×3 (09:18→22:04)
[2021-11-22] MEDS: FUROSEMIDE 40 MG/4 ML VIAL IV SCH (10:05)
[2021-11-22] MEDS: FAMOTIDINE 20 MG/2 ML VIAL IV SCH (10:13)
[2021-11-22] MEDS: MICAFUNGIN 100 MG in SODIUM CHLORIDE 0.9% 100 ML IV SCH (11:26)
[2021-11-22] MEDS: hydrALAZINE 20 MG/1 ML VIAL IV PRN (11:51)
[2021-11-22] MEDS: MIDAZOLAM 100 MG in SODIUM CHLORIDE 0.9% 80 ML IV PRN (11:55)
[2021-11-22 14:34] LABS: ABG Base Excess -1.5 MMOL/L (-2.5-2.5); ABG HCO3 23.2 MMOL/L (20-26); ABG Oxygen Saturation 99.5 % (95-100); ABG PCO2 45.9 MM HG (35-48); ABG PH 7.333 (7.35-7.45); ABG TCO2 23.2 MMOL/L (23-27)
[2021-11-22] MEDS: ASPIRIN EC 81 MG TABLET PO SCH (21:00)
[2021-11-22] MEDS: GABAPENTIN 600 MG TABLET PO SCH (21:01)
[2021-11-23] MEDS: FAMOTIDINE 20 MG/2 ML VIAL IV SCH ×2 (00:36→11:23)
[2021-11-23] MEDS: INSULIN REGULAR 100 UNIT/ML SUBCUT SCH ×4 (00:37→18:15)
[2021-11-23] MEDS: ENOXAPARIN 60 MG/0.6 ML SYRINGE SUBCUT SCH ×2 (00:37→13:48)
[2021-11-23] MEDS: MEROPENEM 500 MG in SODIUM CHLORIDE 0.9% 100 ML IV SCH ×4 (00:37→20:54)
[2021-11-23] MEDS: MIDAZOLAM 100 MG in SODIUM CHLORIDE 0.9% 80 ML IV PRN ×2 (00:38→14:05)
[2021-11-23] MEDS: ALBUTEROL/IPRATROPIUM 3 ML NEB RESP TX SCH ×6 (03:04→22:52)
[2021-11-23 04:00] LABS: ABG HCO3 23.6 MMOL/L (20-26); ABG Oxygen Saturation 99.2 % (95-100); ABG PCO2 49.1 MM HG (35-48); ABG PH 7.321 (7.35-7.45); ABG TCO2 23.8 MMOL/L (23-27)
[2021-11-23] MEDS: fentaNYL INJ 1,250 MCG in SODIUM CHLORIDE 0.9% 225 ML IV PRN ×4 (04:00→21:48)
[2021-11-23 04:02] LABS: Eosinophils % 0.2 % (0.00-10.9); Hematocrit 23.1 VOL% (42.0-52.0); Hemoglobin 6.8 GM/DL (14.0-18.0); Immature Granulocytes % 1.8 %; Lymphocytes # 0.4 10*3/uL (1.4-4.0); Lymphocytes % 6.2 % (21.2-54.2); Mean Corpuscular HGB Conc 29.4 GM/DL (32-36); Mean Corpuscular Volume 97.5 FL (87-102); Monocytes # 0.2 10*3/uL (0.11-0.8); Monocytes % 4.3 % (1.7-12.7); Neutrophils % 87.5 % (38.7-73.9); Platelet Count 149 T/CUMM (130-400); Red Blood Count 2.37 MC/CUMM (3.8-5.5); White Blood Count 5.6 T/CUMM (4-12)
[2021-11-23 04:23] LABS: Calcium 7.8 MG/DL (8.5-10.1); Osmolality,Calculated 328.1 MOS/KG (273-304); Potassium 5.3 MMOL/L (3.5-5.1)
[2021-11-23] MEDS: DESITIN 4OZ/NYSTATIN 15 GRAM MIXTURE PASTE TOP SCH ×2 (08:01→20:54)
[2021-11-23] MEDS: GABAPENTIN 300 MG CAPSULE PO SCH ×2 (08:01→20:53)
[2021-11-23] MEDS: CLOPIDOGREL 75 MG TABLET PO SCH (08:01)
[2021-11-23] MEDS: MULTIVITAMIN LIQUID (CENTRUM) 60 ML BOTTLE PER TUBE SCH (08:01)
[2021-11-23] MEDS: FUROSEMIDE 40 MG/4 ML VIAL IV SCH (08:01)
[2021-11-23] MEDS: BACITRACIN OINT 28.35 GM TUBE TOP SCH (08:01)
[2021-11-23] MEDS: carvediloL 6.25 MG TABLET PO SCH ×2 (08:01→20:53)
[2021-11-23] MEDS: INSULIN GLARGINE 100 UNIT/ML SUBCUT SCH (08:01)
[2021-11-23] MEDS: DAPAGLIFLOZIN 10 MG TABLET PO SCH (08:01)
[2021-11-23] MEDS: FERROUS SULFATE 300 MG/5 ML UDCUP PO SCH ×2 (08:01→20:53)
[2021-11-23] MEDS: CHOLECALCIFEROL 1,000 UNIT TABLET PO SCH (08:02)
[2021-11-23] MEDS: ZINC GLUCONATE 50 MG TABLET PO SCH (08:02)
[2021-11-23] MEDS: SERTRALINE 50 MG TABLET PO SCH (08:02)
[2021-11-23] MEDS: methylPREDNISolone SOD SUC 40 MG/1 ML VIAL IV SCH ×2 (08:37→20:53)
[2021-11-23] MEDS: MICAFUNGIN 100 MG in SODIUM CHLORIDE 0.9% 100 ML IV SCH (13:48)
[2021-11-23] MEDS: SODIUM ZIRCONIUM CYCLOSILICATE 10 GM PACK PO SCH ×2 (16:28→20:53)
[2021-11-23] MEDS: ASPIRIN EC 81 MG TABLET PO SCH (20:53)
[2021-11-23] MEDS: GABAPENTIN 600 MG TABLET PO SCH (20:56)
[2021-11-23 21:59] VITALS: BP 141/48
[2021-11-24] MEDS: INSULIN REGULAR 100 UNIT/ML SUBCUT SCH ×5 (00:36→23:09)
[2021-11-24] MEDS: ENOXAPARIN 60 MG/0.6 ML SYRINGE SUBCUT SCH ×3 (00:36→23:10)
[2021-11-24] MEDS: FAMOTIDINE 20 MG/2 ML VIAL IV SCH ×3 (00:36→23:10)
[2021-11-24] MEDS: ALBUTEROL/IPRATROPIUM 3 ML NEB RESP TX SCH ×6 (02:33→23:47)
[2021-11-24] MEDS: MIDAZOLAM 100 MG in SODIUM CHLORIDE 0.9% 80 ML IV PRN ×2 (02:38→16:08)
[2021-11-24] MEDS: MEROPENEM 500 MG in SODIUM CHLORIDE 0.9% 100 ML IV SCH ×4 (03:52→20:30)
[2021-11-24 04:19] LABS: ABG Base Excess 0.1 MMOL/L (-2.5-2.5); ABG HCO3 24.5 MMOL/L (20-26); ABG Oxygen Saturation 96.5 % (95-100); ABG PCO2 49.8 MM HG (35-48); ABG PH 7.333 (7.35-7.45); ABG PO2 87.4 MM HG (80-95); ABG TCO2 24.4 MMOL/L (23-27); Basophils % 0.1 % (0.0-0.8); Eosinophils % 0.1 % (0.00-10.9); Hemoglobin 9.5 GM/DL (14.0-18.0); Immature Granulocytes % 3.9 %; Immature Granulocytes Absolute 0.28 #; Lymphocytes # 0.6 10*3/uL (1.4-4.0); Lymphocytes % 7.8 % (21.2-54.2); Mean Corpuscular HGB Conc 30.6 GM/DL (32-36); Mean Corpuscular Volume 93.4 FL (87-102); Monocytes # 0.4 10*3/uL (0.11-0.8); Monocytes % 4.9 % (1.7-12.7); Neutrophils % 83.2 % (38.7-73.9); Platelet Count 166 T/CUMM (130-400); Red Blood Count 3.32 MC/CUMM (3.8-5.5); Red Cell Distribution Width 17.1 % (9.3-17.3); White Blood Count 7.2 T/CUMM (4-12)
[2021-11-24] MEDS: fentaNYL INJ 1,250 MCG in SODIUM CHLORIDE 0.9% 225 ML IV PRN ×4 (04:28→20:29)
[2021-11-24 04:40] LABS: Calcium 8.4 MG/DL (8.5-10.1); Osmolality,Calculated 324.1 MOS/KG (273-304); Potassium 4.9 MMOL/L (3.5-5.1)
[2021-11-24] MEDS: MULTIVITAMIN LIQUID (CENTRUM) 60 ML BOTTLE PER TUBE SCH (08:17)
[2021-11-24] MEDS: SERTRALINE 50 MG TABLET PO SCH (08:19)
[2021-11-24] MEDS: carvediloL 6.25 MG TABLET PO SCH ×2 (08:19→20:31)
[2021-11-24] MEDS: SODIUM ZIRCONIUM CYCLOSILICATE 10 GM PACK PO SCH ×3 (08:19→20:31)
[2021-11-24] MEDS: CLOPIDOGREL 75 MG TABLET PO SCH (08:20)
[2021-11-24] MEDS: DAPAGLIFLOZIN 10 MG TABLET PO SCH (08:20)
[2021-11-24] MEDS: CHOLECALCIFEROL 1,000 UNIT TABLET PO SCH (08:20)
[2021-11-24] MEDS: GABAPENTIN 300 MG CAPSULE PO SCH (08:20)
[2021-11-24] MEDS: ZINC GLUCONATE 50 MG TABLET PO SCH (08:20)
[2021-11-24] MEDS: FERROUS SULFATE 300 MG/5 ML UDCUP PO SCH ×2 (08:21→20:31)
[2021-11-24] MEDS: FUROSEMIDE 40 MG/4 ML VIAL IV SCH (08:22)
[2021-11-24] MEDS: INSULIN GLARGINE 100 UNIT/ML SUBCUT SCH (08:23)
[2021-11-24] MEDS: DESITIN 4OZ/NYSTATIN 15 GRAM MIXTURE PASTE TOP SCH ×2 (08:24→20:30)
[2021-11-24] MEDS: BACITRACIN OINT 28.35 GM TUBE TOP SCH (08:25)
[2021-11-24] MEDS: methylPREDNISolone SOD SUC 40 MG/1 ML VIAL IV SCH ×2 (08:38→20:31)
[2021-11-24] MEDS: MICAFUNGIN 100 MG in SODIUM CHLORIDE 0.9% 100 ML IV SCH (11:49)
[2021-11-24] MEDS ORDERED: FUROSEMIDE 40 MG/4 ML VIAL IV ONE (16:00)
[2021-11-24] MEDS: ASPIRIN EC 81 MG TABLET PO SCH (20:31)
[2021-11-24] MEDS: GABAPENTIN 600 MG TABLET PO SCH (20:31)
[2021-11-24] MEDS: hydrALAZINE 20 MG/1 ML VIAL IV PRN (23:10)
[2021-11-25] MEDS: fentaNYL INJ 1,250 MCG in SODIUM CHLORIDE 0.9% 225 ML IV PRN ×5 (01:42→21:53)
[2021-11-25] MEDS: MEROPENEM 500 MG in SODIUM CHLORIDE 0.9% 100 ML IV SCH ×4 (02:35→20:31)
[2021-11-25 03:45] LABS: ABG Base Excess 3.2 MMOL/L (-2.5-2.5); ABG HCO3 27.3 MMOL/L (20-26); ABG Oxygen Saturation 97.7 % (95-100); ABG PCO2 43.6 MM HG (35-48); ABG PH 7.417 (7.35-7.45); ABG PO2 95.8 MM HG (80-95); ABG TCO2 25.7 MMOL/L (23-27)
[2021-11-25 03:48] LABS: Basophils % 0.1 % (0.0-0.8); Eosinophils % 0.1 % (0.00-10.9); Hematocrit 31.3 VOL% (42.0-52.0); Hemoglobin 9.6 GM/DL (14.0-18.0); Immature Granulocytes % 2.8 %; Immature Granulocytes Absolute 0.21 #; Lymphocytes # 0.7 10*3/uL (1.4-4.0); Lymphocytes % 8.9 % (21.2-54.2); Mean Corpuscular HGB Conc 30.7 GM/DL (32-36); Mean Corpuscular Volume 92.3 FL (87-102); Mean Platelet Volume 10.8 FL (9.6-12.0); Monocytes # 0.4 10*3/uL (0.11-0.8); Monocytes % 4.6 % (1.7-12.7); Neutrophils % 83.5 % (38.7-73.9); Platelet Count 182 T/CUMM (130-400); Red Blood Count 3.39 MC/CUMM (3.8-5.5); Red Cell Distribution Width 16.6 % (9.3-17.3); White Blood Count 7.6 T/CUMM (4-12)
[2021-11-25] MEDS: MIDAZOLAM 100 MG in SODIUM CHLORIDE 0.9% 80 ML IV PRN ×2 (03:49→14:28)
[2021-11-25 04:04] LABS: Calcium 8.1 MG/DL (8.5-10.1); Osmolality,Calculated 320.3 MOS/KG (273-304)
[2021-11-25 04:07] LABS: INR 1.1; PT Patient Result 11.8 SECS (10.1-12.1)
[2021-11-25] MEDS: ALBUTEROL/IPRATROPIUM 3 ML NEB RESP TX SCH ×5 (04:30→19:24)
[2021-11-25] MEDS: INSULIN REGULAR 100 UNIT/ML SUBCUT SCH ×4 (05:11→23:54)
[2021-11-25] MEDS: hydrALAZINE 20 MG/1 ML VIAL IV PRN (09:03)
[2021-11-25] MEDS: INSULIN GLARGINE 100 UNIT/ML SUBCUT SCH (09:18)
[2021-11-25] MEDS: DAPAGLIFLOZIN 10 MG TABLET PO SCH (09:18)
[2021-11-25] MEDS: CHOLECALCIFEROL 1,000 UNIT TABLET PO SCH (09:18)
[2021-11-25] MEDS: carvediloL 6.25 MG TABLET PO SCH ×2 (09:18→20:31)
[2021-11-25] MEDS: ZINC GLUCONATE 50 MG TABLET PO SCH (09:18)
[2021-11-25] MEDS: BACITRACIN OINT 28.35 GM TUBE TOP SCH (09:18)
[2021-11-25] MEDS: FERROUS SULFATE 300 MG/5 ML UDCUP PO SCH ×2 (09:18→20:31)
[2021-11-25] MEDS: SERTRALINE 50 MG TABLET PO SCH (09:18)
[2021-11-25] MEDS: GABAPENTIN 300 MG CAPSULE PO SCH (09:18)
[2021-11-25] MEDS: MULTIVITAMIN LIQUID (CENTRUM) 60 ML BOTTLE PER TUBE SCH (09:18)
[2021-11-25] MEDS: FUROSEMIDE 40 MG/4 ML VIAL IV SCH (09:25)
[2021-11-25] MEDS: methylPREDNISolone SOD SUC 40 MG/1 ML VIAL IV SCH ×2 (09:45→20:30)
[2021-11-25] MEDS: DESITIN 4OZ/NYSTATIN 15 GRAM MIXTURE PASTE TOP SCH ×2 (09:45→20:30)
[2021-11-25] MEDS: FAMOTIDINE 20 MG/2 ML VIAL IV SCH ×2 (11:15→23:54)
[2021-11-25] MEDS: MICAFUNGIN 100 MG in SODIUM CHLORIDE 0.9% 100 ML IV SCH (12:27)
[2021-11-25] MEDS: ENOXAPARIN 60 MG/0.6 ML SYRINGE SUBCUT SCH ×2 (12:32→23:54)
[2021-11-25] MEDS: GABAPENTIN 600 MG TABLET PO SCH (20:31)
[2021-11-25] MEDS: ASPIRIN EC 81 MG TABLET PO SCH (20:31)
[2021-11-26] MEDS: ALBUTEROL/IPRATROPIUM 3 ML NEB RESP TX SCH ×7 (00:30→23:28)
[2021-11-26] MEDS: fentaNYL INJ 1,250 MCG in SODIUM CHLORIDE 0.9% 225 ML IV PRN ×2 (02:27→06:39)
[2021-11-26] MEDS: MEROPENEM 500 MG in SODIUM CHLORIDE 0.9% 100 ML IV SCH ×4 (02:40→20:39)
[2021-11-26] MEDS: MIDAZOLAM 100 MG in SODIUM CHLORIDE 0.9% 80 ML IV PRN ×2 (03:15→14:40)
[2021-11-26 04:21] LABS: ABG Base Excess 4.1 MMOL/L (-2.5-2.5); ABG HCO3 28.1 MMOL/L (20-26); ABG Oxygen Saturation 97.6 % (95-100); ABG PCO2 36.9 MM HG (35-48); ABG PH 7.483 (7.35-7.45); ABG TCO2 25.1 MMOL/L (23-27)
[2021-11-26 04:24] LABS: Basophils % 0.1 % (0.0-0.8); Eosinophils % 0.3 % (0.00-10.9); Hematocrit 30.4 VOL% (42.0-52.0); Hemoglobin 9.6 GM/DL (14.0-18.0); Immature Granulocytes % 2.5 %; Immature Granulocytes Absolute 0.18 #; Lymphocytes # 0.6 10*3/uL (1.4-4.0); Lymphocytes % 8.7 % (21.2-54.2); Mean Corpuscular HGB Conc 31.6 GM/DL (32-36); Mean Platelet Volume 10.7 FL (9.6-12.0); Monocytes # 0.3 10*3/uL (0.11-0.8); Monocytes % 4.4 % (1.7-12.7); Platelet Count 173 T/CUMM (130-400); Red Blood Count 3.34 MC/CUMM (3.8-5.5); Red Cell Distribution Width 16.3 % (9.3-17.3); White Blood Count 7.2 T/CUMM (4-12)
[2021-11-26 04:40] LABS: Calcium 8.3 MG/DL (8.5-10.1); Osmolality,Calculated 319.3 MOS/KG (273-304); Potassium 3.8 MMOL/L (3.5-5.1)
[2021-11-26] MEDS: INSULIN REGULAR 100 UNIT/ML SUBCUT SCH ×4 (05:10→23:49)
[2021-11-26] MEDS: MULTIVITAMIN LIQUID (CENTRUM) 60 ML BOTTLE PER TUBE SCH (08:28)
[2021-11-26] MEDS: BACITRACIN OINT 28.35 GM TUBE TOP SCH (08:28)
[2021-11-26] MEDS: FUROSEMIDE 40 MG/4 ML VIAL IV SCH (08:28)
[2021-11-26] MEDS: GABAPENTIN 300 MG CAPSULE PO SCH (08:28)
[2021-11-26] MEDS: FERROUS SULFATE 300 MG/5 ML UDCUP PO SCH ×2 (08:28→20:40)
[2021-11-26] MEDS: INSULIN GLARGINE 100 UNIT/ML SUBCUT SCH (08:28)
[2021-11-26] MEDS: DAPAGLIFLOZIN 10 MG TABLET PO SCH (08:28)
[2021-11-26] MEDS: carvediloL 6.25 MG TABLET PO SCH ×2 (08:28→20:40)
[2021-11-26] MEDS: ZINC GLUCONATE 50 MG TABLET PO SCH (08:29)
[2021-11-26] MEDS: methylPREDNISolone SOD SUC 40 MG/1 ML VIAL IV SCH ×2 (08:29→20:40)
[2021-11-26] MEDS: DESITIN 4OZ/NYSTATIN 15 GRAM MIXTURE PASTE TOP SCH ×2 (08:29→20:41)
[2021-11-26] MEDS: CHOLECALCIFEROL 1,000 UNIT TABLET PO SCH (08:29)
[2021-11-26] MEDS: SERTRALINE 50 MG TABLET PO SCH (08:29)
[2021-11-26] MEDS: FAMOTIDINE 20 MG/2 ML VIAL IV SCH ×2 (11:50→23:49)
[2021-11-26] MEDS: fentaNYL INJ 2,500 MCG in SODIUM CHLORIDE 0.9% 450 ML IV PRN (11:51)
[2021-11-26] MEDS: ENOXAPARIN 60 MG/0.6 ML SYRINGE SUBCUT SCH ×2 (11:51→23:50)
[2021-11-26] MEDS: MICAFUNGIN 100 MG in SODIUM CHLORIDE 0.9% 100 ML IV SCH (11:51)
[2021-11-26] MEDS ORDERED: FUROSEMIDE 40 MG/4 ML VIAL IV ONE (16:00)
[2021-11-26] MEDS: ASPIRIN EC 81 MG TABLET PO SCH (20:40)
[2021-11-26] MEDS: GABAPENTIN 600 MG TABLET PO SCH (20:40)
[2021-11-27] MEDS: MIDAZOLAM 100 MG in SODIUM CHLORIDE 0.9% 80 ML IV PRN ×2 (01:44→15:54)
[2021-11-27] MEDS: ALBUTEROL/IPRATROPIUM 3 ML NEB RESP TX SCH ×5 (03:58→19:32)
[2021-11-27] MEDS: MEROPENEM 500 MG in SODIUM CHLORIDE 0.9% 100 ML IV SCH ×4 (04:18→20:46)
[2021-11-27 04:47] LABS: ABG Base Excess 7.6 MMOL/L (-2.5-2.5); ABG HCO3 31.3 MMOL/L (20-26); ABG Oxygen Saturation 91.9 % (95-100); ABG PCO2 36.2 MM HG (35-48); ABG PH 7.534 (7.35-7.45); ABG PO2 58.8 MM HG (80-95); ABG TCO2 26.4 MMOL/L (23-27); Basophils % 0.1 % (0.0-0.8); Eosinophils # 0.1 10*3/uL (0.0-0.87); Eosinophils % 1.4 % (0.00-10.9); Hematocrit 31.2 VOL% (42.0-52.0); Hemoglobin 9.9 GM/DL (14.0-18.0); Immature Granulocytes % 1.8 %; Immature Granulocytes Absolute 0.15 #; Lymphocytes % 12.8 % (21.2-54.2); Mean Corpuscular HGB Conc 31.7 GM/DL (32-36); Mean Corpuscular Volume 89.4 FL (87-102); Mean Platelet Volume 10.6 FL (9.6-12.0); Monocytes # 0.4 10*3/uL (0.11-0.8); Monocytes % 4.9 % (1.7-12.7); Platelet Count 167 T/CUMM (130-400); Red Blood Count 3.49 MC/CUMM (3.8-5.5); White Blood Count 8.1 T/CUMM (4-12)
[2021-11-27 04:58] LABS: Calcium 8.1 MG/DL (8.5-10.1); Osmolality,Calculated 308.6 MOS/KG (273-304); Potassium 3.4 MMOL/L (3.5-5.1)
[2021-11-27] MEDS: INSULIN REGULAR 100 UNIT/ML SUBCUT SCH ×3 (05:19→18:55)
[2021-11-27] MEDS: MULTIVITAMIN LIQUID (CENTRUM) 60 ML BOTTLE PER TUBE SCH (08:23)
[2021-11-27] MEDS: BACITRACIN OINT 28.35 GM TUBE TOP SCH (08:23)
[2021-11-27] MEDS: FERROUS SULFATE 300 MG/5 ML UDCUP PO SCH ×2 (08:27→20:47)
[2021-11-27] MEDS: carvediloL 6.25 MG TABLET PO SCH ×2 (08:27→20:47)
[2021-11-27] MEDS: DAPAGLIFLOZIN 10 MG TABLET PO SCH (08:27)
[2021-11-27] MEDS: methylPREDNISolone SOD SUC 40 MG/1 ML VIAL IV SCH ×2 (08:28→20:47)
[2021-11-27] MEDS: INSULIN GLARGINE 100 UNIT/ML SUBCUT SCH (08:28)
[2021-11-27] MEDS: FUROSEMIDE 40 MG/4 ML VIAL IV SCH (08:28)
[2021-11-27] MEDS: GABAPENTIN 300 MG CAPSULE PO SCH (08:28)
[2021-11-27] MEDS: CHOLECALCIFEROL 1,000 UNIT TABLET PO SCH (08:28)
[2021-11-27] MEDS: DESITIN 4OZ/NYSTATIN 15 GRAM MIXTURE PASTE TOP SCH ×2 (08:28→20:48)
[2021-11-27] MEDS: SERTRALINE 50 MG TABLET PO SCH (08:29)
[2021-11-27] MEDS: ZINC GLUCONATE 50 MG TABLET PO SCH (08:29)
[2021-11-27] MEDS: FAMOTIDINE 20 MG/2 ML VIAL IV SCH (11:34)
[2021-11-27] MEDS: ENOXAPARIN 60 MG/0.6 ML SYRINGE SUBCUT SCH (13:40)
[2021-11-27] MEDS: MICAFUNGIN 100 MG in SODIUM CHLORIDE 0.9% 100 ML IV SCH (13:40)
[2021-11-27] MEDS: ASPIRIN EC 81 MG TABLET PO SCH (20:47)
[2021-11-27] MEDS: GABAPENTIN 600 MG TABLET PO SCH (20:47)
[2021-11-28] MEDS: INSULIN REGULAR 100 UNIT/ML SUBCUT SCH ×5 (00:21→23:45)
[2021-11-28] MEDS: ALBUTEROL/IPRATROPIUM 3 ML NEB RESP TX SCH ×7 (00:24→23:25)
[2021-11-28] MEDS: ENOXAPARIN 60 MG/0.6 ML SYRINGE SUBCUT SCH ×3 (00:24→23:46)
[2021-11-28] MEDS: FAMOTIDINE 20 MG/2 ML VIAL IV SCH ×3 (00:25→23:46)
[2021-11-28] MEDS: fentaNYL INJ 2,500 MCG in SODIUM CHLORIDE 0.9% 450 ML IV PRN ×2 (01:00→22:06)
[2021-11-28 04:48] LABS: ABG Base Excess 8.9 MMOL/L (-2.5-2.5); ABG HCO3 32.6 MMOL/L (20-26); ABG Oxygen Saturation 94.6 % (95-100); ABG PCO2 35.9 MM HG (35-48); ABG PH 7.555 (7.35-7.45); ABG PO2 66.6 MM HG (80-95); ABG TCO2 28.9 MMOL/L (23-27)
[2021-11-28 05:04] LABS: Basophils % 0.1 % (0.0-0.8); Eosinophils # 0.1 10*3/uL (0.0-0.87); Eosinophils % 0.8 % (0.00-10.9); Hematocrit 30.2 VOL% (42.0-52.0); Hemoglobin 9.6 GM/DL (14.0-18.0); Immature Granulocytes % 1.6 %; Immature Granulocytes Absolute 0.12 #; Lymphocytes # 1.1 10*3/uL (1.4-4.0); Lymphocytes % 14.7 % (21.2-54.2); Mean Corpuscular HGB Conc 31.8 GM/DL (32-36); Mean Corpuscular Volume 89.6 FL (87-102); Mean Platelet Volume 10.8 FL (9.6-12.0); Monocytes # 0.4 10*3/uL (0.11-0.8); Monocytes % 4.9 % (1.7-12.7); Neutrophils % 77.9 % (38.7-73.9); Platelet Count 164 T/CUMM (130-400); Red Blood Count 3.37 MC/CUMM (3.8-5.5); Red Cell Distribution Width 16.1 % (9.3-17.3); White Blood Count 7.5 T/CUMM (4-12)
[2021-11-28 05:12] LABS: Calcium 8.1 MG/DL (8.5-10.1); Osmolality,Calculated 305.7 MOS/KG (273-304); Potassium 3.5 MMOL/L (3.5-5.1)
[2021-11-28] MEDS: hydrALAZINE 20 MG/1 ML VIAL IV PRN (07:47)
[2021-11-28] MEDS: FUROSEMIDE 40 MG/4 ML VIAL IV SCH ×2 (07:55→21:06)
[2021-11-28] MEDS: INSULIN GLARGINE 100 UNIT/ML SUBCUT SCH (09:55)
[2021-11-28] MEDS: FERROUS SULFATE 300 MG/5 ML UDCUP PO SCH ×2 (09:55→21:06)
[2021-11-28] MEDS: methylPREDNISolone SOD SUC 40 MG/1 ML VIAL IV SCH ×2 (09:55→21:05)
[2021-11-28] MEDS: CHOLECALCIFEROL 1,000 UNIT TABLET PO SCH (09:56)
[2021-11-28] MEDS: GABAPENTIN 300 MG CAPSULE PO SCH (09:56)
[2021-11-28] MEDS: MULTIVITAMIN LIQUID (CENTRUM) 60 ML BOTTLE PER TUBE SCH (09:57)
[2021-11-28] MEDS: SERTRALINE 50 MG TABLET PO SCH (09:57)
[2021-11-28] MEDS: DAPAGLIFLOZIN 10 MG TABLET PO SCH (09:57)
[2021-11-28] MEDS: ZINC GLUCONATE 50 MG TABLET PO SCH (09:57)
[2021-11-28] MEDS: carvediloL 6.25 MG TABLET PO SCH ×2 (09:57→21:06)
[2021-11-28] MEDS: BACITRACIN OINT 28.35 GM TUBE TOP SCH (09:58)
[2021-11-28] MEDS: DESITIN 4OZ/NYSTATIN 15 GRAM MIXTURE PASTE TOP SCH ×2 (09:58→21:07)
[2021-11-28] MEDS: MICAFUNGIN 100 MG in SODIUM CHLORIDE 0.9% 100 ML IV SCH (12:30)
[2021-11-28] MEDS: GABAPENTIN 600 MG TABLET PO SCH (21:07)
[2021-11-28] MEDS: ASPIRIN EC 81 MG TABLET PO SCH (21:07)
[2021-11-29] MEDS: ALBUTEROL/IPRATROPIUM 3 ML NEB RESP TX SCH ×6 (03:35→22:17)
[2021-11-29 03:44] LABS: ABG Base Excess 10.5 MMOL/L (-2.5-2.5); ABG HCO3 34.3 MMOL/L (20-26); ABG Oxygen Saturation 99.6 % (95-100); ABG PCO2 40.3 MM HG (35-48); ABG PH 7.536 (7.35-7.45); ABG TCO2 31.2 MMOL/L (23-27)
[2021-11-29 03:45] LABS: Basophils % 0.2 % (0.0-0.8); Eosinophils % 0.7 % (0.00-10.9); Hematocrit 28.3 VOL% (42.0-52.0); Hemoglobin 8.7 GM/DL (14.0-18.0); Immature Granulocytes % 1.1 %; Immature Granulocytes Absolute 0.06 #; Lymphocytes # 0.8 10*3/uL (1.4-4.0); Lymphocytes % 14.9 % (21.2-54.2); Mean Corpuscular HGB Conc 30.7 GM/DL (32-36); Mean Corpuscular Volume 90.4 FL (87-102); Mean Platelet Volume 10.9 FL (9.6-12.0); Monocytes # 0.3 10*3/uL (0.11-0.8); Monocytes % 5.8 % (1.7-12.7); Neutrophils % 77.3 % (38.7-73.9); Platelet Count 145 T/CUMM (130-400); Red Blood Count 3.13 MC/CUMM (3.8-5.5); Red Cell Distribution Width 16.3 % (9.3-17.3); White Blood Count 5.6 T/CUMM (4-12)
[2021-11-29 04:04] LABS: Osmolality,Calculated 302.8 MOS/KG (273-304); Potassium 3.6 MMOL/L (3.5-5.1)
[2021-11-29] MEDS: INSULIN REGULAR 100 UNIT/ML SUBCUT SCH ×3 (05:22→17:41)
[2021-11-29] MEDS ORDERED: MAGNESIUM SULF RIDER 2 GM/50 ML PREMIX IV ONE (07:38)
[2021-11-29] MEDS: hydrALAZINE 20 MG/1 ML VIAL IV PRN (07:45)
[2021-11-29] MEDS: SERTRALINE 50 MG TABLET PO SCH (09:24)
[2021-11-29] MEDS: ZINC GLUCONATE 50 MG TABLET PO SCH (09:25)
[2021-11-29] MEDS: FERROUS SULFATE 300 MG/5 ML UDCUP PO SCH ×2 (09:25→20:55)
[2021-11-29] MEDS: CHOLECALCIFEROL 1,000 UNIT TABLET PO SCH (09:25)
[2021-11-29] MEDS: DAPAGLIFLOZIN 10 MG TABLET PO SCH (09:25)
[2021-11-29] MEDS: carvediloL 6.25 MG TABLET PO SCH ×2 (09:25→20:55)
[2021-11-29] MEDS: GABAPENTIN 300 MG CAPSULE PO SCH (09:25)
[2021-11-29] MEDS: FUROSEMIDE 40 MG/4 ML VIAL IV SCH ×2 (09:28→20:55)
[2021-11-29] MEDS: INSULIN GLARGINE 100 UNIT/ML SUBCUT SCH (09:28)
[2021-11-29] MEDS: methylPREDNISolone SOD SUC 40 MG/1 ML VIAL IV SCH ×2 (09:30→20:56)
[2021-11-29] MEDS: ASPIRIN CHEW 81 MG TABLET PO SCH (09:31)
[2021-11-29] MEDS: DESITIN 4OZ/NYSTATIN 15 GRAM MIXTURE PASTE TOP SCH ×2 (09:48→20:56)
[2021-11-29] MEDS: BACITRACIN OINT 28.35 GM TUBE TOP SCH (09:48)
[2021-11-29] MEDS: MULTIVITAMIN LIQUID (CENTRUM) 60 ML BOTTLE PER TUBE SCH (09:48)
[2021-11-29] MEDS: FAMOTIDINE 20 MG/2 ML VIAL IV SCH (11:57)
[2021-11-29] MEDS: MICAFUNGIN 100 MG in SODIUM CHLORIDE 0.9% 100 ML IV SCH (12:07)
[2021-11-29] MEDS: ENOXAPARIN 60 MG/0.6 ML SYRINGE SUBCUT SCH (12:56)
[2021-11-29] MEDS: GABAPENTIN 600 MG TABLET PO SCH (20:55)
[2021-11-30] MEDS: INSULIN REGULAR 100 UNIT/ML SUBCUT SCH ×5 (00:35→23:26)
[2021-11-30] MEDS: FAMOTIDINE 20 MG/2 ML VIAL IV SCH ×3 (00:41→22:45)
[2021-11-30] MEDS: ENOXAPARIN 60 MG/0.6 ML SYRINGE SUBCUT SCH ×3 (00:41→23:38)
[2021-11-30] MEDS: MIDAZOLAM 100 MG in SODIUM CHLORIDE 0.9% 80 ML IV PRN (02:21)
[2021-11-30] MEDS: ALBUTEROL/IPRATROPIUM 3 ML NEB RESP TX SCH ×6 (03:20→23:40)
[2021-11-30 03:28] LABS: ABG HCO3 35.8 MMOL/L (20-26); ABG Oxygen Saturation 96.7 % (95-100); ABG PCO2 36.9 MM HG (35-48); ABG PH 7.585 (7.35-7.45); ABG PO2 72.3 MM HG (80-95); ABG TCO2 32.2 MMOL/L (23-27)
[2021-11-30 03:30] LABS: Basophils % 0.1 % (0.0-0.8); Eosinophils % 0.4 % (0.00-10.9); Hematocrit 27.5 VOL% (42.0-52.0); Hemoglobin 8.7 GM/DL (14.0-18.0); Immature Granulocytes % 0.7 %; Immature Granulocytes Absolute 0.05 #; Lymphocytes % 14.3 % (21.2-54.2); Mean Corpuscular HGB Conc 31.6 GM/DL (32-36); Mean Corpuscular Volume 89.9 FL (87-102); Mean Platelet Volume 10.5 FL (9.6-12.0); Monocytes # 0.4 10*3/uL (0.11-0.8); Monocytes % 5.5 % (1.7-12.7); Platelet Count 150 T/CUMM (130-400); Red Blood Count 3.06 MC/CUMM (3.8-5.5); Red Cell Distribution Width 16.1 % (9.3-17.3); White Blood Count 6.9 T/CUMM (4-12)
[2021-11-30 03:52] LABS: Calcium 8.1 MG/DL (8.5-10.1); Osmolality,Calculated 295.3 MOS/KG (273-304); Potassium 3.4 MMOL/L (3.5-5.1)
[2021-11-30] MEDS: fentaNYL INJ 1,250 MCG in SODIUM CHLORIDE 0.9% 225 ML IV PRN ×2 (06:01→16:30)
[2021-11-30] MEDS: SERTRALINE 50 MG TABLET PO SCH (09:47)
[2021-11-30] MEDS: ASPIRIN CHEW 81 MG TABLET PO SCH (09:48)
[2021-11-30] MEDS: ZINC GLUCONATE 50 MG TABLET PO SCH (09:48)
[2021-11-30] MEDS: FERROUS SULFATE 300 MG/5 ML UDCUP PO SCH ×2 (09:48→21:15)
[2021-11-30] MEDS: DAPAGLIFLOZIN 10 MG TABLET PO SCH (09:48)
[2021-11-30] MEDS: GABAPENTIN 300 MG CAPSULE PO SCH (09:48)
[2021-11-30] MEDS: carvediloL 6.25 MG TABLET PO SCH ×2 (09:48→21:15)
[2021-11-30] MEDS: MAGNESIUM OXIDE 400 MG TABLET PO SCH ×2 (09:48→21:15)
[2021-11-30] MEDS: methylPREDNISolone SOD SUC 40 MG/1 ML VIAL IV SCH ×2 (09:48→21:15)
[2021-11-30] MEDS: CHOLECALCIFEROL 1,000 UNIT TABLET PO SCH (09:48)
[2021-11-30] MEDS: INSULIN GLARGINE 100 UNIT/ML SUBCUT SCH (09:49)
[2021-11-30] MEDS: DESITIN 4OZ/NYSTATIN 15 GRAM MIXTURE PASTE TOP SCH ×2 (09:50→21:16)
[2021-11-30] MEDS: BACITRACIN OINT 28.35 GM TUBE TOP SCH (09:51)
[2021-11-30] MEDS: MULTIVITAMIN LIQUID (CENTRUM) 60 ML BOTTLE PER TUBE SCH (09:51)
[2021-11-30] MEDS: MICAFUNGIN 100 MG in SODIUM CHLORIDE 0.9% 100 ML IV SCH (12:47)
[2021-11-30] MEDS: FUROSEMIDE 40 MG/4 ML VIAL IV SCH (12:51)
[2021-11-30] MEDS ORDERED: DEXMEDETOMIDINE 200 MCG in SODIUM CHLORIDE 0.9% 48 ML IV PRN (16:23)
[2021-11-30] MEDS: GABAPENTIN 600 MG TABLET PO SCH (21:15)
[2021-12-01] MEDS: fentaNYL INJ 1,250 MCG in SODIUM CHLORIDE 0.9% 225 ML IV PRN (01:56)
[2021-12-01] MEDS: ALBUTEROL/IPRATROPIUM 3 ML NEB RESP TX SCH ×6 (03:22→23:40)
[2021-12-01 03:33] LABS: ABG Base Excess 5.6 MMOL/L (-2.5-2.5); ABG HCO3 29.5 MMOL/L (20-26); ABG Oxygen Saturation 99.1 % (95-100); ABG PCO2 38.2 MM HG (35-48); ABG PH 7.492 (7.35-7.45); ABG TCO2 26.9 MMOL/L (23-27)
[2021-12-01 03:34] LABS: Basophils % 0.2 % (0.0-0.8); Eosinophils % 0.8 % (0.00-10.9); Hemoglobin 8.7 GM/DL (14.0-18.0); Immature Granulocytes % 0.8 %; Immature Granulocytes Absolute 0.04 #; Lymphocytes # 0.8 10*3/uL (1.4-4.0); Lymphocytes % 15.8 % (21.2-54.2); Mean Corpuscular HGB Conc 32.2 GM/DL (32-36); Mean Corpuscular Volume 89.4 FL (87-102); Mean Platelet Volume 10.6 FL (9.6-12.0); Monocytes # 0.3 10*3/uL (0.11-0.8); Monocytes % 5.8 % (1.7-12.7); Neutrophils % 76.6 % (38.7-73.9); Platelet Count 128 T/CUMM (130-400); Red Blood Count 3.02 MC/CUMM (3.8-5.5); White Blood Count 5.3 T/CUMM (4-12)
[2021-12-01 03:49] LABS: Calcium 7.9 MG/DL (8.5-10.1); Osmolality,Calculated 288.7 MOS/KG (273-304); Potassium 3.6 MMOL/L (3.5-5.1)
[2021-12-01] MEDS: INSULIN REGULAR 100 UNIT/ML SUBCUT SCH ×4 (05:44→23:29)
[2021-12-01] MEDS: CHOLECALCIFEROL 1,000 UNIT TABLET PO SCH (09:21)
[2021-12-01] MEDS: POTASSIUM CHLORIDE 20 MEQ TABLET PO PRN ×2 (09:21→16:59)
[2021-12-01] MEDS: ASPIRIN CHEW 81 MG TABLET PO SCH (09:21)
[2021-12-01] MEDS: ZINC GLUCONATE 50 MG TABLET PO SCH (09:22)
[2021-12-01] MEDS: INSULIN GLARGINE 100 UNIT/ML SUBCUT SCH (09:22)
[2021-12-01] MEDS: GABAPENTIN 300 MG CAPSULE PO SCH (09:22)
[2021-12-01] MEDS: carvediloL 6.25 MG TABLET PO SCH ×2 (09:22→20:48)
[2021-12-01] MEDS: SERTRALINE 50 MG TABLET PO SCH (09:22)
[2021-12-01] MEDS: FUROSEMIDE 40 MG/4 ML VIAL IV SCH (09:22)
[2021-12-01] MEDS: DAPAGLIFLOZIN 10 MG TABLET PO SCH (09:23)
[2021-12-01] MEDS: FERROUS SULFATE 300 MG/5 ML UDCUP PO SCH ×2 (09:23→20:47)
[2021-12-01] MEDS: MAGNESIUM OXIDE 400 MG TABLET PO SCH ×2 (09:34→20:47)
[2021-12-01] MEDS: methylPREDNISolone SOD SUC 40 MG/1 ML VIAL IV SCH ×2 (09:34→20:49)
[2021-12-01] MEDS: BACITRACIN OINT 28.35 GM TUBE TOP SCH (09:35)
[2021-12-01] MEDS: DESITIN 4OZ/NYSTATIN 15 GRAM MIXTURE PASTE TOP SCH ×2 (09:35→22:10)
[2021-12-01] MEDS: MULTIVITAMIN LIQUID (CENTRUM) 60 ML BOTTLE PER TUBE SCH (09:36)
[2021-12-01] MEDS: FAMOTIDINE 20 MG/2 ML VIAL IV SCH ×2 (11:54→23:29)
[2021-12-01] MEDS: ENOXAPARIN 60 MG/0.6 ML SYRINGE SUBCUT SCH (11:59)
[2021-12-01] MEDS: GABAPENTIN 600 MG TABLET PO SCH (20:46)
[2021-12-02] MEDS: ENOXAPARIN 60 MG/0.6 ML SYRINGE SUBCUT SCH ×2 (00:10→11:36)
[2021-12-02] MEDS: ALBUTEROL/IPRATROPIUM 3 ML NEB RESP TX SCH ×5 (03:45→19:06)
[2021-12-02 04:40] LABS: ABG Base Excess 4.7 MMOL/L (-2.5-2.5); ABG HCO3 28.5 MMOL/L (20-26); ABG Oxygen Saturation 92.3 % (95-100); ABG PCO2 48.9 MM HG (35-48); ABG PH 7.399 (7.35-7.45); ABG PO2 65.5 MM HG (80-95); ABG TCO2 27.9 MMOL/L (23-27)
[2021-12-02 04:57] LABS: Albumin 1.8 G/DL (3.4-5.0); Bilirubin,Total 0.9 MG/DL (0.20-1.00); Osmolality,Calculated 293.3 MOS/KG (273-304); Phosphorous 3.5 MG/DL (2.5-4.9); Potassium 3.8 MMOL/L (3.5-5.1); Total Protein 5.7 G/DL (6.4-8.2)
[2021-12-02] MEDS: INSULIN REGULAR 100 UNIT/ML SUBCUT SCH ×3 (05:34→18:23)
[2021-12-02] MEDS: MAGNESIUM OXIDE 400 MG TABLET PO SCH (09:54)
[2021-12-02] MEDS: INSULIN GLARGINE 100 UNIT/ML SUBCUT SCH (09:54)
[2021-12-02] MEDS: DAPAGLIFLOZIN 10 MG TABLET PO SCH (09:54)
[2021-12-02] MEDS: ZINC GLUCONATE 50 MG TABLET PO SCH (09:54)
[2021-12-02] MEDS: SERTRALINE 50 MG TABLET PO SCH (09:54)
[2021-12-02] MEDS: GABAPENTIN 300 MG CAPSULE PO SCH (09:54)
[2021-12-02] MEDS: ASPIRIN CHEW 81 MG TABLET PO SCH (09:54)
[2021-12-02] MEDS: CHOLECALCIFEROL 1,000 UNIT TABLET PO SCH (09:54)
[2021-12-02] MEDS: methylPREDNISolone SOD SUC 40 MG/1 ML VIAL IV SCH (09:55)
[2021-12-02] MEDS: FUROSEMIDE 40 MG/4 ML VIAL IV SCH (09:55)
[2021-12-02] MEDS: carvediloL 6.25 MG TABLET PO SCH (09:55)
[2021-12-02] MEDS: DESITIN 4OZ/NYSTATIN 15 GRAM MIXTURE PASTE TOP SCH (09:56)
[2021-12-02] MEDS: BACITRACIN OINT 28.35 GM TUBE TOP SCH (09:56)
[2021-12-02] MEDS: FERROUS SULFATE 300 MG/5 ML UDCUP PO SCH (09:58)
[2021-12-02] MEDS: FAMOTIDINE 20 MG/2 ML VIAL IV SCH (10:01)
[2021-12-02] MEDS: MULTIVITAMIN LIQUID (CENTRUM) 60 ML BOTTLE PER TUBE SCH (11:37)
== END 2021-12-02 19:20 | DRG 207 ==
LOC: EDBD → EDUNIT# → N.ED 16:55 → SUATTDRO 20:08 → N.TELES 20:08 → N.CC 11-08 07:31
PROVIDERS: ADMIT Hospitalist; ATTEND Internal Medicine

== ENCOUNTER 2022-02-16 10:07 | Observation (INO) ==
[2022-02-16] MEDS ORDERED: SODIUM CHLORIDE 0.9% 1,000 ML IV STA (10:58)
[2022-02-16] MEDS ORDERED: ONDANSETRON 4 MG/2 ML VIAL IV STA (10:58)
[2022-02-16 11:04] LABS: Basophils # 0.1 10*3/uL (0.0-0.2); Basophils % 0.5 % (0.0-0.8); Eosinophils # 0.2 10*3/uL (0.0-0.87); Eosinophils % 1.4 % (0.00-10.9); Hematocrit 30.6 VOL% (42.0-52.0); Immature Granulocytes % 2.6 %; Immature Granulocytes Absolute 0.42 #; Lymphocytes # 1.9 10*3/uL (1.4-4.0); Lymphocytes % 11.7 % (21.2-54.2); Mean Corpuscular HGB Conc 29.4 GM/DL (32-36); Mean Corpuscular Volume 85.2 FL (87-102); Mean Platelet Volume 9.5 FL (9.6-12.0); Monocytes % 6.3 % (1.7-12.7); Neutrophils % 77.5 % (38.7-73.9); Platelet Count 426 T/CUMM (130-400); Red Blood Count 3.59 MC/CUMM (3.8-5.5); Red Cell Distribution Width 16.1 % (9.3-17.3); White Blood Count 15.9 T/CUMM (4-12)
[2022-02-16 11:19] LABS: Albumin 2.4 G/DL (3.4-5.0); Bilirubin,Total 0.6 MG/DL (0.20-1.00); Calcium 9.6 MG/DL (8.5-10.1); Potassium 4.3 MMOL/L (3.5-5.1); Total Protein 8.7 G/DL (6.4-8.2)
[2022-02-16 13:48] LABS: Bilirubin,Urine Negative (Negative); Blood, Urine Moderate mg/dL (Negative); Glucose,Urine (UA) >=500 mg/dL (Negative); Hyaline Casts,Urine 4 /LPF (0-3); Ketones,Urine Negative (Negative); Mucus,Urine Occasional /LPF (Occasional); Nitrite,Urine Negative (Negative); Protein,Urine Negative (Negative); RBC,Urine 9 /HPF (0-4); Squamous Epithelial Cell,Urine Occasional /HPF (0-10); Urine Appearance Slightly Hazy (Clear); Urine Color Yellow (Yellow); Urine Specific Gravity 1.016 (1.001-1.035); Urine Urobilinogen < 2.0 eU/dL (<2.0)
[2022-02-16] MEDS: ERTAPENEM 1,000 MG in SODIUM CHLORIDE 0.9% 100 ML IV SCH (15:16)
[2022-02-16] MEDS ORDERED: GLUCAGON 1 MG VIAL IM PRN (16:19)
[2022-02-16] MEDS ORDERED: ONDANSETRON 4 MG/2 ML VIAL IV PRN (16:20)
[2022-02-16] MEDS ORDERED: DEXTROSE 50% 25 GM/50 ML VIAL IV PRN (16:20)
[2022-02-16] MEDS ORDERED: ACETAMINOPHEN 325 MG TABLET PO PRN (16:20)
[2022-02-16] MEDS ORDERED: DOCUSATE SODIUM 100 MG CAPSULE PO PRN (16:20)
[2022-02-16] MEDS ORDERED: DEXTROSE 10% 250 ML BAG IV PRN (16:23)
[2022-02-16] MEDS: INSULIN REGULAR 100 UNIT/ML SUBCUT SCH ×2 (17:57→21:54)
[2022-02-16] MEDS: INSULIN LISPRO 100 UNIT/ML SUBCUT SCH ×2 (18:10→21:55)
[2022-02-16] MEDS: ENOXAPARIN 40 MG/0.4 ML SYRINGE SUBCUT SCH (18:10)
[2022-02-17 06:25] LABS: Calcium 8.8 MG/DL (8.5-10.1); Osmolality,Calculated 287.4 MOS/KG (273-304); Potassium 4.6 MMOL/L (3.5-5.1)
[2022-02-17 07:04] LABS: Basophils % 0.3 % (0.0-0.8); Eosinophils # 0.2 10*3/uL (0.0-0.87); Eosinophils % 1.5 % (0.00-10.9); Hematocrit 24.7 VOL% (42.0-52.0); Hemoglobin 7.2 GM/DL (14.0-18.0); Immature Granulocytes % 2.4 %; Immature Granulocytes Absolute 0.28 #; Lymphocytes # 1.9 10*3/uL (1.4-4.0); Mean Corpuscular HGB Conc 29.1 GM/DL (32-36); Mean Corpuscular Volume 85.5 FL (87-102); Mean Platelet Volume 9.8 FL (9.6-12.0); Monocytes # 0.9 10*3/uL (0.11-0.8); Monocytes % 7.3 % (1.7-12.7); Neutrophils % 72.5 % (38.7-73.9); Platelet Count 356 T/CUMM (130-400); Red Blood Count 2.89 MC/CUMM (3.8-5.5); Red Cell Distribution Width 16.3 % (9.3-17.3); White Blood Count 11.7 T/CUMM (4-12)
[2022-02-17] MEDS ORDERED: SODIUM CHLORIDE 0.9% 1,000 ML IV PRN (08:25)
[2022-02-17] MEDS: INSULIN LISPRO 100 UNIT/ML SUBCUT SCH ×4 (08:44→21:12)
[2022-02-17] MEDS ORDERED: POLYETHYLENE GLYCOL POWDER 17 GM PACK PO PRN (09:42)
[2022-02-17] MEDS ORDERED: ALBUTEROL/IPRATROPIUM 3 ML NEB RESP TX PRN (09:42)
[2022-02-17] MEDS ORDERED: MELATONIN 3 MG TABLET PO PRN (09:46)
[2022-02-17] MEDS ORDERED: MIDAZOLAM 2 MG/2 ML VIAL ONE (13:50)
[2022-02-17] MEDS ORDERED: KETAMINE 500 MG/10 ML VIAL ONE (13:50)
[2022-02-17] MEDS ORDERED: LIDOCAINE 1% 5 ML VIAL ONE (13:51)
[2022-02-17] MEDS ORDERED: BUPIVACAINE MPF 0.25% 10 ML VIAL ONE (13:51)
[2022-02-17] MEDS ORDERED: ETOMIDATE 40 MG/20 ML VIAL IV ONE (14:10)
[2022-02-17] MEDS: ENOXAPARIN 40 MG/0.4 ML SYRINGE SUBCUT SCH (16:10)
[2022-02-17] MEDS: carvediloL 6.25 MG TABLET PO SCH (16:10)
[2022-02-17] MEDS ORDERED: GLUCAGON 1 MG VIAL IM PRN (16:58)
[2022-02-17] MEDS ORDERED: DEXTROSE 50% 25 GM/50 ML VIAL IV PRN (16:58)
[2022-02-17] MEDS ORDERED: GABAPENTIN 600 MG TABLET PO SCH (21:00)
[2022-02-17] MEDS ORDERED: NON-FORMULARY MEDICATION (Melatonin 3 mg Tablet) PO SCH (21:00)
[2022-02-17] MEDS ORDERED: NYSTATIN CREAM 15 GM TUBE TOP SCH (21:00)
[2022-02-17] MEDS: ERTAPENEM 1,000 MG in SODIUM CHLORIDE 0.9% 100 ML IV SCH (21:13)
[2022-02-18 04:58] LABS: Basophils # 0.1 10*3/uL (0.0-0.2); Basophils % 0.5 % (0.0-0.8); Eosinophils # 0.2 10*3/uL (0.0-0.87); Eosinophils % 1.9 % (0.00-10.9); Hematocrit 29.3 VOL% (42.0-52.0); Immature Granulocytes % 2.1 %; Immature Granulocytes Absolute 0.24 #; Lymphocytes # 2.3 10*3/uL (1.4-4.0); Lymphocytes % 20.4 % (21.2-54.2); Mean Corpuscular HGB Conc 30.7 GM/DL (32-36); Mean Corpuscular Volume 85.7 FL (87-102); Mean Platelet Volume 9.5 FL (9.6-12.0); Monocytes # 0.9 10*3/uL (0.11-0.8); Monocytes % 7.5 % (1.7-12.7); Neutrophils % 67.6 % (38.7-73.9); Platelet Count 349 T/CUMM (130-400); Red Blood Count 3.42 MC/CUMM (3.8-5.5); Red Cell Distribution Width 15.8 % (9.3-17.3); White Blood Count 11.4 T/CUMM (4-12)
[2022-02-18 05:26] LABS: Calcium 8.5 MG/DL (8.5-10.1); Osmolality,Calculated 283.3 MOS/KG (273-304); Potassium 4.1 MMOL/L (3.5-5.1)
[2022-02-18] MEDS ORDERED: NON-FORMULARY MEDICATION (Prenat.Vits,Cal,Min-Iron-Folic Tablet) PO SCH (09:00)
[2022-02-18] MEDS ORDERED: INSULIN GLARGINE 100 UNIT/ML SUBCUT SCH (09:00)
[2022-02-18] MEDS ORDERED: GABAPENTIN 300 MG CAPSULE PO SCH (09:00)
[2022-02-18] MEDS ORDERED: FAMOTIDINE 20 MG TABLET PO SCH (09:00)
[2022-02-18] MEDS ORDERED: SERTRALINE 100 MG TABLET PO SCH (09:00)
[2022-02-18] MEDS: carvediloL 6.25 MG TABLET PO SCH (09:09)
[2022-02-18] MEDS: INSULIN LISPRO 100 UNIT/ML SUBCUT SCH (09:19)
[2022-02-18] MEDS ORDERED: COLLAGENASE OINT 30 GM TUBE TOP SCH (12:00)
[2022-02-18 12:55] VITALS: BP 150/70
== END 2022-02-18 14:16 ==
LOC: N.2W 10:07 → N.ED 10:07 → SUATTDRO 14:30 → N.2W 17:20
PROVIDERS: ADMIT Internal Medicine; ATTEND Hospitalist

== ENCOUNTER 2022-03-23 16:57 | Inpatient (IN) ==
[2022-03-23] MEDS ORDERED: PIPERACILLIN/TAZOBACTAM 3,375 MG in SODIUM CHLORIDE 0.9% 100 ML IV STA (17:34)
[2022-03-23] MEDS ORDERED: VANCOMYCIN INJ 1,000 MG in SODIUM CHLORIDE 0.9% 250 ML IV STA (17:36)
[2022-03-23] MEDS ORDERED: SODIUM CHLORIDE 0.9% 500 ML IV STA (17:40)
[2022-03-23] MEDS ORDERED: ACETAMINOPHEN 500 MG TABLET PO STA (17:40)
[2022-03-23 18:08] LABS: Basophils # 0.1 10*3/uL (0.0-0.2); Basophils % 0.3 % (0.0-0.8); Eosinophils # 0.2 10*3/uL (0.0-0.87); Eosinophils % 1.3 % (0.00-10.9); Hematocrit 26.3 VOL% (42.0-52.0); Hemoglobin 7.8 GM/DL (14.0-18.0); Immature Granulocytes % 2.2 %; Immature Granulocytes Absolute 0.33 #; Lymphocytes # 1.9 10*3/uL (1.4-4.0); Lymphocytes % 12.7 % (21.2-54.2); Mean Corpuscular HGB Conc 29.7 GM/DL (32-36); Mean Corpuscular Volume 82.2 FL (87-102); Monocytes # 0.9 10*3/uL (0.11-0.8); Monocytes % 6.3 % (1.7-12.7); Neutrophils % 77.2 % (38.7-73.9); Platelet Count 390 T/CUMM (130-400); White Blood Count 14.7 T/CUMM (4-12)
[2022-03-23 18:26] LABS: Calcium 8.5 MG/DL (8.5-10.1); Osmolality,Calculated 283.7 MOS/KG (273-304); Potassium 3.9 MMOL/L (3.5-5.1)
[2022-03-23] MEDS ORDERED: hydrALAZINE 20 MG/1 ML VIAL IV PRN (19:01)
[2022-03-23] MEDS ORDERED: ONDANSETRON 4 MG/2 ML VIAL IV PRN (19:01)
[2022-03-23] MEDS ORDERED: SODIUM CHLORIDE 0.9% 1,000 ML IV PRN (19:07)
[2022-03-23 19:25] LABS: % Iron Saturation 9.6 % (18-50)
[2022-03-23] MEDS: INSULIN REGULAR 100 UNIT/ML SUBCUT SCH (21:50)
[2022-03-23] MEDS: ENOXAPARIN 40 MG/0.4 ML SYRINGE SUBCUT SCH (22:23)
[2022-03-24] MEDS: ACETAMINOPHEN 325 MG TABLET PO PRN (02:26)
[2022-03-24] MEDS: PIPERACILLIN/TAZOBACTAM 3,375 MG in SODIUM CHLORIDE 0.9% 100 ML IV SCH ×3 (03:45→20:40)
[2022-03-24 05:23] LABS: Basophils # 0.1 10*3/uL (0.0-0.2); Basophils % 0.5 % (0.0-0.8); Eosinophils # 0.1 10*3/uL (0.0-0.87); Eosinophils % 0.9 % (0.00-10.9); Hematocrit 32.9 VOL% (42.0-52.0); Hemoglobin 10.2 GM/DL (14.0-18.0); Immature Granulocytes % 3.2 %; Immature Granulocytes Absolute 0.36 #; Lymphocytes # 0.9 10*3/uL (1.4-4.0); Mean Corpuscular Volume 82.7 FL (87-102); Mean Platelet Volume 9.1 FL (9.6-12.0); Monocytes # 0.5 10*3/uL (0.11-0.8); Monocytes % 4.6 % (1.7-12.7); Neutrophils % 82.8 % (38.7-73.9); Platelet Count 370 T/CUMM (130-400); Red Blood Count 3.98 MC/CUMM (3.8-5.5); Red Cell Distribution Width 16.7 % (9.3-17.3); White Blood Count 11.4 T/CUMM (4-12)
[2022-03-24 05:49] LABS: Albumin 1.9 G/DL (3.4-5.0); Calcium 8.4 MG/DL (8.5-10.1); Osmolality,Calculated 286.8 MOS/KG (273-304); Potassium 4.4 MMOL/L (3.5-5.1); Risk Ratio 4.2; Thyroid Stimulating Hormone 2.89 uIU/ml (0.358-3.74); Total Protein 7.8 G/DL (6.4-8.2); VLDL Cholesterol 17.2 MG/DL
[2022-03-24] MEDS: VANCOMYCIN INJ 1,500 MG in SODIUM CHLORIDE 0.9% 500 ML IV SCH (06:26)
[2022-03-24] MEDS: INSULIN REGULAR 100 UNIT/ML SUBCUT SCH ×4 (09:29→20:41)
[2022-03-24] MEDS: PANTOPRAZOLE 40 MG TABLET PO SCH (09:31)
[2022-03-24] MEDS: carvediloL 6.25 MG TABLET PO SCH (17:12)
[2022-03-24] MEDS: ENOXAPARIN 40 MG/0.4 ML SYRINGE SUBCUT SCH (20:41)
[2022-03-24] MEDS: INSULIN GLARGINE 100 UNIT/ML SUBCUT SCH (20:42)
[2022-03-25] MEDS: VANCOMYCIN INJ 1,500 MG in SODIUM CHLORIDE 0.9% 500 ML IV SCH (00:09)
[2022-03-25] MEDS: PIPERACILLIN/TAZOBACTAM 3,375 MG in SODIUM CHLORIDE 0.9% 100 ML IV SCH ×3 (03:59→21:35)
[2022-03-25] MEDS: ACETAMINOPHEN 325 MG TABLET PO PRN (05:26)
[2022-03-25 06:04] LABS: Basophils % 0.3 % (0.0-0.8); Eosinophils # 0.2 10*3/uL (0.0-0.87); Eosinophils % 1.6 % (0.00-10.9); Hemoglobin 9.8 GM/DL (14.0-18.0); Immature Granulocytes % 1.9 %; Immature Granulocytes Absolute 0.22 #; Lymphocytes # 2.1 10*3/uL (1.4-4.0); Lymphocytes % 17.5 % (21.2-54.2); Mean Corpuscular HGB Conc 30.6 GM/DL (32-36); Mean Corpuscular Volume 82.5 FL (87-102); Mean Platelet Volume 8.9 FL (9.6-12.0); Monocytes # 0.8 10*3/uL (0.11-0.8); Monocytes % 6.7 % (1.7-12.7); Platelet Count 379 T/CUMM (130-400); Red Blood Count 3.88 MC/CUMM (3.8-5.5); Red Cell Distribution Width 16.8 % (9.3-17.3); White Blood Count 11.9 T/CUMM (4-12)
[2022-03-25 06:22] LABS: Calcium 8.7 MG/DL (8.5-10.1); Osmolality,Calculated 276.8 MOS/KG (273-304); Potassium 3.7 MMOL/L (3.5-5.1)
[2022-03-25] MEDS: INSULIN REGULAR 100 UNIT/ML SUBCUT SCH ×4 (07:12→21:35)
[2022-03-25] MEDS: SERTRALINE 100 MG TABLET PO SCH (09:55)
[2022-03-25] MEDS: FUROSEMIDE 20 MG TABLET PO SCH (09:55)
[2022-03-25] MEDS: GABAPENTIN 300 MG CAPSULE PO SCH (09:55)
[2022-03-25] MEDS: PANTOPRAZOLE 40 MG TABLET PO SCH (09:55)
[2022-03-25] MEDS: DAPAGLIFLOZIN 10 MG TABLET PO SCH (09:55)
[2022-03-25] MEDS: carvediloL 6.25 MG TABLET PO SCH ×2 (09:55→17:00)
[2022-03-25] MEDS: INSULIN GLARGINE 100 UNIT/ML SUBCUT SCH (21:35)
[2022-03-25] MEDS: ENOXAPARIN 40 MG/0.4 ML SYRINGE SUBCUT SCH (21:36)
[2022-03-26] MEDS: PIPERACILLIN/TAZOBACTAM 3,375 MG in SODIUM CHLORIDE 0.9% 100 ML IV SCH ×3 (05:20→21:00)
[2022-03-26 05:58] LABS: Basophils # 0.1 10*3/uL (0.0-0.2); Basophils % 0.5 % (0.0-0.8); Eosinophils # 0.2 10*3/uL (0.0-0.87); Eosinophils % 1.8 % (0.00-10.9); Hematocrit 35.9 VOL% (42.0-52.0); Hemoglobin 10.9 GM/DL (14.0-18.0); Immature Granulocytes % 1.5 %; Immature Granulocytes Absolute 0.17 #; Lymphocytes # 2.1 10*3/uL (1.4-4.0); Lymphocytes % 19.2 % (21.2-54.2); Mean Corpuscular HGB Conc 30.4 GM/DL (32-36); Mean Corpuscular Volume 82.2 FL (87-102); Mean Platelet Volume 8.6 FL (9.6-12.0); Monocytes # 0.7 10*3/uL (0.11-0.8); Monocytes % 6.6 % (1.7-12.7); Neutrophils % 70.4 % (38.7-73.9); Platelet Count 370 T/CUMM (130-400); Red Blood Count 4.37 MC/CUMM (3.8-5.5); Red Cell Distribution Width 16.8 % (9.3-17.3); White Blood Count 11.1 T/CUMM (4-12)
[2022-03-26 06:39] LABS: Osmolality,Calculated 282.5 MOS/KG (273-304); Potassium 3.8 MMOL/L (3.5-5.1)
[2022-03-26] MEDS: DAPAGLIFLOZIN 10 MG TABLET PO SCH (09:03)
[2022-03-26] MEDS: INSULIN REGULAR 100 UNIT/ML SUBCUT SCH ×4 (09:04→21:09)
[2022-03-26] MEDS: carvediloL 6.25 MG TABLET PO SCH ×2 (09:04→16:48)
[2022-03-26] MEDS: PANTOPRAZOLE 40 MG TABLET PO SCH (09:04)
[2022-03-26] MEDS: FUROSEMIDE 20 MG TABLET PO SCH (09:04)
[2022-03-26] MEDS: GABAPENTIN 300 MG CAPSULE PO SCH (09:04)
[2022-03-26] MEDS: SERTRALINE 100 MG TABLET PO SCH (09:04)
[2022-03-26] MEDS: VANCOMYCIN INJ 1,500 MG in SODIUM CHLORIDE 0.9% 500 ML IV SCH (10:10)
[2022-03-26] MEDS: INSULIN GLARGINE 100 UNIT/ML SUBCUT SCH (21:14)
[2022-03-26] MEDS: ENOXAPARIN 40 MG/0.4 ML SYRINGE SUBCUT SCH (21:14)
[2022-03-27] MEDS: VANCOMYCIN INJ 1,500 MG in SODIUM CHLORIDE 0.9% 500 ML IV SCH ×2 (03:20→21:19)
[2022-03-27] MEDS: PIPERACILLIN/TAZOBACTAM 3,375 MG in SODIUM CHLORIDE 0.9% 100 ML IV SCH ×3 (05:45→23:50)
[2022-03-27 06:04] LABS: Calcium 8.8 MG/DL (8.5-10.1); Osmolality,Calculated 279.7 MOS/KG (273-304); Potassium 3.8 MMOL/L (3.5-5.1)
[2022-03-27 06:10] LABS: Basophils # 0.1 10*3/uL (0.0-0.2); Basophils % 0.6 % (0.0-0.8); Eosinophils # 0.2 10*3/uL (0.0-0.87); Hematocrit 36.5 VOL% (42.0-52.0); Immature Granulocytes % 1.8 %; Lymphocytes % 18.1 % (21.2-54.2); Mean Corpuscular HGB Conc 28.5 GM/DL (32-36); Mean Corpuscular Volume 87.1 FL (87-102); Mean Platelet Volume 9.1 FL (9.6-12.0); Monocytes # 0.7 10*3/uL (0.11-0.8); Monocytes % 6.1 % (1.7-12.7); Neutrophils % 71.4 % (38.7-73.9); Platelet Count 384 T/CUMM (130-400); Red Blood Count 4.19 MC/CUMM (3.8-5.5); White Blood Count 11.1 T/CUMM (4-12)
[2022-03-27 06:23] LABS: Hemoglobin 10.4 GM/DL (14.0-18.0)
[2022-03-27] MEDS: INSULIN REGULAR 100 UNIT/ML SUBCUT SCH ×4 (07:44→21:21)
[2022-03-27] MEDS: DAPAGLIFLOZIN 10 MG TABLET PO SCH (08:47)
[2022-03-27] MEDS: FUROSEMIDE 20 MG TABLET PO SCH (08:48)
[2022-03-27] MEDS: SERTRALINE 100 MG TABLET PO SCH (08:48)
[2022-03-27] MEDS: PANTOPRAZOLE 40 MG TABLET PO SCH (08:48)
[2022-03-27] MEDS: carvediloL 6.25 MG TABLET PO SCH ×2 (08:48→17:33)
[2022-03-27] MEDS: GABAPENTIN 300 MG CAPSULE PO SCH (08:48)
[2022-03-28] MEDS: PIPERACILLIN/TAZOBACTAM 3,375 MG in SODIUM CHLORIDE 0.9% 100 ML IV SCH ×3 (03:53→20:43)
[2022-03-28] MEDS: INSULIN REGULAR 100 UNIT/ML SUBCUT SCH ×4 (07:16→21:08)
[2022-03-28] MEDS: carvediloL 6.25 MG TABLET PO SCH ×2 (08:14→16:22)
[2022-03-28] MEDS ORDERED: GLUCAGON 1 MG VIAL IM PRN (12:49)
[2022-03-28] MEDS ORDERED: HYDROmorphone 1 MG/1 ML SYRINGE IV PRN (12:49)
[2022-03-28] MEDS ORDERED: DEXTROSE 10% 250 ML BAG IV PRN (12:49)
[2022-03-28] MEDS ORDERED: BISACODYL 5 MG TABLET PO PRN (12:49)
[2022-03-28] MEDS ORDERED: PHENYLEPHRINE 1 MG/10 ML SYRINGE IV ONE (13:37)
[2022-03-28] MEDS: HYDROmorphone 1 MG/1 ML SYRINGE IV PRN ×3 (14:05→23:40)
[2022-03-28] MEDS ORDERED: PHENYLEPHRINE 50 MG/5 ML VIAL IV ONE (14:05)
[2022-03-28] MEDS: DAPAGLIFLOZIN 10 MG TABLET PO SCH (16:19)
[2022-03-28] MEDS: FUROSEMIDE 20 MG TABLET PO SCH (16:19)
[2022-03-28] MEDS: SERTRALINE 100 MG TABLET PO SCH (16:19)
[2022-03-28] MEDS: PANTOPRAZOLE 40 MG TABLET PO SCH (16:19)
[2022-03-28] MEDS: GABAPENTIN 300 MG CAPSULE PO SCH ×2 (16:21→20:44)
[2022-03-28] MEDS: VANCOMYCIN INJ 1,500 MG in SODIUM CHLORIDE 0.9% 500 ML IV SCH (16:35)
[2022-03-28] MEDS: KETOROLAC 15 MG/1 ML VIAL IV PRN (18:12)
[2022-03-28] MEDS: INSULIN GLARGINE 100 UNIT/ML SUBCUT SCH (21:08)
[2022-03-29] MEDS: PIPERACILLIN/TAZOBACTAM 3,375 MG in SODIUM CHLORIDE 0.9% 100 ML IV SCH (03:50)
[2022-03-29 05:22] LABS: Basophils # 0.1 10*3/uL (0.0-0.2); Basophils % 0.5 % (0.0-0.8); Eosinophils # 0.2 10*3/uL (0.0-0.87); Eosinophils % 1.6 % (0.00-10.9); Hemoglobin 9.5 GM/DL (14.0-18.0); Immature Granulocytes % 1.6 %; Immature Granulocytes Absolute 0.24 #; Lymphocytes # 1.8 10*3/uL (1.4-4.0); Lymphocytes % 12.6 % (21.2-54.2); Mean Corpuscular HGB Conc 29.7 GM/DL (32-36); Mean Corpuscular Volume 84.9 FL (87-102); Mean Platelet Volume 9.1 FL (9.6-12.0); Monocytes % 6.6 % (1.7-12.7); Neutrophils % 77.1 % (38.7-73.9); Platelet Count 358 T/CUMM (130-400); Red Blood Count 3.77 MC/CUMM (3.8-5.5); Red Cell Distribution Width 17.2 % (9.3-17.3); White Blood Count 14.6 T/CUMM (4-12)
[2022-03-29] MEDS: FUROSEMIDE 20 MG TABLET PO SCH (08:32)
[2022-03-29] MEDS: DAPAGLIFLOZIN 10 MG TABLET PO SCH (08:32)
[2022-03-29] MEDS: carvediloL 6.25 MG TABLET PO SCH ×2 (08:32→16:40)
[2022-03-29] MEDS: PANTOPRAZOLE 40 MG TABLET PO SCH (08:32)
[2022-03-29] MEDS: GABAPENTIN 300 MG CAPSULE PO SCH ×2 (08:32→20:25)
[2022-03-29] MEDS: SERTRALINE 100 MG TABLET PO SCH (08:32)
[2022-03-29] MEDS: INSULIN REGULAR 100 UNIT/ML SUBCUT SCH ×4 (08:33→22:22)
[2022-03-29] MEDS: VANCOMYCIN INJ 1,500 MG in SODIUM CHLORIDE 0.9% 500 ML IV SCH (10:50)
[2022-03-29] MEDS: HYDROmorphone 1 MG/1 ML SYRINGE IV PRN ×2 (15:02→20:26)
[2022-03-29] MEDS: ENOXAPARIN 40 MG/0.4 ML SYRINGE SUBCUT SCH (20:25)
[2022-03-29] MEDS: INSULIN GLARGINE 100 UNIT/ML SUBCUT SCH (22:45)
[2022-03-29] MEDS: KETOROLAC 15 MG/1 ML VIAL IV PRN (23:46)
[2022-03-30] MEDS: VANCOMYCIN INJ 1,500 MG in SODIUM CHLORIDE 0.9% 500 ML IV SCH (03:19)
[2022-03-30 04:52] LABS: Basophils % 0.4 % (0.0-0.8); Eosinophils # 0.2 10*3/uL (0.0-0.87); Eosinophils % 2.1 % (0.00-10.9); Hematocrit 24.8 VOL% (42.0-52.0); Hemoglobin 7.3 GM/DL (14.0-18.0); Immature Granulocytes % 1.8 %; Immature Granulocytes Absolute 0.19 #; Lymphocytes # 1.9 10*3/uL (1.4-4.0); Lymphocytes % 17.3 % (21.2-54.2); Mean Corpuscular HGB Conc 29.4 GM/DL (32-36); Mean Corpuscular Volume 85.8 FL (87-102); Mean Platelet Volume 9.3 FL (9.6-12.0); Monocytes # 0.7 10*3/uL (0.11-0.8); Monocytes % 6.7 % (1.7-12.7); Neutrophils % 71.7 % (38.7-73.9); Platelet Count 242 T/CUMM (130-400); Red Blood Count 2.89 MC/CUMM (3.8-5.5); Red Cell Distribution Width 17.1 % (9.3-17.3); White Blood Count 10.7 T/CUMM (4-12)
[2022-03-30 05:18] LABS: Albumin 1.7 G/DL (3.4-5.0); Bilirubin,Total 0.4 MG/DL (0.20-1.00); Calcium 7.9 MG/DL (8.5-10.1); Osmolality,Calculated 286.3 MOS/KG (273-304); Potassium 3.7 MMOL/L (3.5-5.1); Total Protein 6.2 G/DL (6.4-8.2)
[2022-03-30] MEDS: FUROSEMIDE 20 MG TABLET PO SCH (08:40)
[2022-03-30] MEDS: INSULIN REGULAR 100 UNIT/ML SUBCUT SCH ×4 (08:40→21:29)
[2022-03-30] MEDS: GABAPENTIN 300 MG CAPSULE PO SCH ×2 (08:40→21:28)
[2022-03-30] MEDS: SERTRALINE 100 MG TABLET PO SCH (08:40)
[2022-03-30] MEDS: carvediloL 6.25 MG TABLET PO SCH ×2 (08:40→16:06)
[2022-03-30] MEDS: DAPAGLIFLOZIN 10 MG TABLET PO SCH (08:40)
[2022-03-30] MEDS: PANTOPRAZOLE 40 MG TABLET PO SCH (08:40)
[2022-03-30] MEDS: HYDROmorphone 1 MG/1 ML SYRINGE IV PRN ×2 (08:52→21:37)
[2022-03-30] MEDS ORDERED: dimenhyDRINATE 50 MG TABLET PO PRN (11:49)
[2022-03-30] MEDS ORDERED: traMADol 50 MG TABLET PO PRN (11:49)
[2022-03-30] MEDS ORDERED: POLYETHYLENE GLYCOL POWDER 17 GM PACK PO PRN (11:49)
[2022-03-30] MEDS ORDERED: NALOXONE 0.4 MG/ML VIAL IV PRN (13:12)
[2022-03-30] MEDS: KETOROLAC 15 MG/1 ML VIAL IV SCH ×2 (13:37→18:48)
[2022-03-30] MEDS ORDERED: GABAPENTIN 600 MG TABLET PO SCH (21:00)
[2022-03-30] MEDS ORDERED: INSULIN GLARGINE 100 UNIT/ML SUBCUT SCH (21:00)
[2022-03-30] MEDS ORDERED: INSULIN REGULAR 100 UNIT/ML SUBCUT SCH (21:00)
[2022-03-30] MEDS ORDERED: MELATONIN 3 MG TABLET PO SCH (21:00)
[2022-03-30] MEDS: ENOXAPARIN 40 MG/0.4 ML SYRINGE SUBCUT SCH (21:28)
[2022-03-30] MEDS: NYSTATIN CREAM 15 GM TUBE TOP SCH (21:28)
[2022-03-31] MEDS: KETOROLAC 15 MG/1 ML VIAL IV SCH ×3 (02:22→13:04)
[2022-03-31 07:07] LABS: Alanine Aminotransferase 14 U/L (16-61); Albumin 1.8 G/DL (3.4-5.0); Alkaline Phosphatase 79 U/L (45-117); Aspartate Amino Transferase 14 U/L (0-37); Bilirubin,Total < 0.39 MG/DL (0.20-1.00); Blood Urea Nitrogen 23 MG/DL (7-18); Calcium 8.2 MG/DL (8.5-10.1); Carbon Dioxide 26 MMOL/L (21-32); Chloride 109 MMOL/L (98-107); Glucose 155 MG/DL (74-106); Osmolality,Calculated 289.1 MOS/KG (273-304); Potassium 3.8 MMOL/L (3.5-5.1); Sodium 142 MMOL/L (136-145); Total Protein 7.2 G/DL (6.4-8.2)
[2022-03-31 07:12] LABS: Basophils % 0.3 % (0.0-0.8); Eosinophils # 0.3 10*3/uL (0.0-0.87); Hematocrit 28.8 VOL% (42.0-52.0); Hemoglobin 8.3 GM/DL (14.0-18.0); Immature Granulocytes % 2.4 %; Immature Granulocytes Absolute 0.25 #; Lymphocytes % 18.7 % (21.2-54.2); Mean Corpuscular HGB Conc 28.8 GM/DL (32-36); Mean Corpuscular Volume 86.5 FL (87-102); Mean Platelet Volume 9.8 FL (9.6-12.0); Monocytes # 0.6 10*3/uL (0.11-0.8); Monocytes % 5.6 % (1.7-12.7); Platelet Count 304 T/CUMM (130-400); Red Blood Count 3.33 MC/CUMM (3.8-5.5); Red Cell Distribution Width 17.5 % (9.3-17.3); White Blood Count 10.4 T/CUMM (4-12)
[2022-03-31] MEDS: carvediloL 6.25 MG TABLET PO SCH (08:17)
[2022-03-31] MEDS: PANTOPRAZOLE 40 MG TABLET PO SCH (08:17)
[2022-03-31] MEDS: DAPAGLIFLOZIN 10 MG TABLET PO SCH (08:17)
[2022-03-31] MEDS: SERTRALINE 100 MG TABLET PO SCH (08:17)
[2022-03-31] MEDS: INSULIN REGULAR 100 UNIT/ML SUBCUT SCH ×2 (08:17→13:04)
[2022-03-31] MEDS: GABAPENTIN 300 MG CAPSULE PO SCH (08:17)
[2022-03-31] MEDS: FUROSEMIDE 20 MG TABLET PO SCH (08:17)
[2022-03-31] MEDS: NYSTATIN CREAM 15 GM TUBE TOP SCH (08:20)
[2022-03-31] MEDS ORDERED: ASPIRIN EC 81 MG TABLET PO SCH (09:00)
[2022-03-31] MEDS ORDERED: INSULIN GLARGINE 100 UNIT/ML SUBCUT SCH (09:00)
[2022-03-31 16:12] VITALS: BP 121/51
[2022-03-31] MEDS: HYDROmorphone 1 MG/1 ML SYRINGE IV PRN (16:22)
== END 2022-03-31 16:33 | DRG 240 ==
LOC: N.ED 16:57 → SUATTDRO 19:01 → N.EDINP 19:01 → N.3E 19:42
PROVIDERS: ADMIT Emergency Medicine; ATTEND Family Medicine